=== PATIENT | male | born 1990 | race Caucasian/White ===

== ENCOUNTER 2018-01-26 15:27 | Outpatient (REF) | payer MEDICAID, SELFPAY ==
[2018-01-26 22:49] LABS: Absolute Basophil Count 0.01 k/cumm (0.0-0.2); Absolute Eosinophil Count 0.27 k/cumm (0.0-0.7); Absolute Lymphocyte Count 2.52 k/cumm (1.2-3.4); Absolute Monocyte Count 0.38 k/cumm (0.11-0.7); Absolute Neutrophil Count 1.96 k/cumm (1.2-6.7); Basophils % 0.2; Eosinophils % 5.3; HGB 13.1 g/dL (13.5-17.5); Mean Corpuscular Hemoglobin 31.1 pg (27.0-33.0); Mean Corpuscular Volume 97.4 fL (80-95); Mean Platelet Volume 10.2 fL (8.0-11.0); Monocytes % 7.4; Neutrophils % 38.1; Platelet Count 221 x1000/uL (130-400); RBC 4.21 m/cumm (4.50-6.00); RBC Distribution Width 12.9 % (11.8-14.1); White Blood Cell Count 5.14 k/cumm (4.4-10.8)
[2018-01-26 23:07] LABS: ALT 29 U/L (12-78); Albumin 4.2 g/dL (3.4-5.0); Alkaline Phosphatase 42 U/L (46-116); Anion Gap 7.6 mmol/L (3-11); BUN 24 mg/dL (7-18); Bilirubin, Total 0.2 mg/dL (0.2-1.0); CO2 32.4 mmol/L (21.0-32.0); CREATININE 0.96 mg/dL (0.70-1.30); Calcium 9.6 mg/dL (8.5-10.1); Chloride 101 mmol/L (98-107); Glucose 95 mg/dL (70-100); Potassium 4.8 mmol/L (3.5-5.1); Sodium 141 mmol/L (136-145); Total Protein 7.9 g/dL (6.4-8.2)
[2018-01-26 23:16] LABS: Lipase 148 U/L (73-393)
[2018-01-26 23:34] LABS: AST 17 U/L (15-37)
== END 2018-01-26 15:47 ==
LOC: NCHCN 15:27
PROVIDERS: PCP Family Medicine; Visit Provider Family Medicine
DX: R10.9 Unspecified abdominal pain (principal)
CPT/HCPCS: 80053; 83690; 85025

== ENCOUNTER 2018-09-19 12:43 | Outpatient (REF) | payer MEDICAID, SELFPAY | END 2018-09-19 13:03 | LOC: NCHCN 12:43 | PROVIDERS: PCP Family Medicine; Visit Provider Specialist/Technologist Athletic Trainer | DX: E03.9 Hypothyroidism, unspecified (principal) | CPT/HCPCS: 84443 ==

== ENCOUNTER 2018-10-17 02:17 | Outpatient (CLI) | payer MEDICAID, SELFPAY | END 2018-10-17 02:37 | PROVIDERS: PCP Family Medicine; Visit Provider Family Medicine | DX: R69 Illness, unspecified (principal) ==

== ENCOUNTER 2018-12-21 16:55 | Emergency (ER) | payer MEDICAID, SELFPAY ==
[2018-12-21 16:59] VITALS: BP 126/48; PULSE 64; RESP 18; TEMP 36.7; O2SAT 97
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
[2018-12-21 18:33] VITALS: BP 126/48; PULSE 64; RESP 18; TEMP 36.7; O2SAT 97
== END 2018-12-21 18:37 | disposition home or self-care (01) ==
PROVIDERS: Emergency Provider Physician Assistant; PCP Family Medicine
DX: S92.354A Nondisplaced fracture of fifth metatarsal bone, right foot, initial encounter for closed fracture (principal); V86.59XA Driver of other special all-terrain or other off-road motor vehicle injured in nontraffic accident, initial encounter
CPT/HCPCS: 29515; 99282; 99283; 73630

== ENCOUNTER 2018-12-30 19:26 | Emergency (ER) | payer MEDICAID, SELFPAY ==
[2018-12-30 19:33] VITALS: BP 114/64; PULSE 64; RESP 16; TEMP 36.5; O2SAT 94
--- NOTE | 2018-12-30 20:11 | W.ED.GENAD ---
Discharge Plan Disposition Patient Disposition: HOME Condition: Good Discharge Details Chief Complaint: Orthopedic Clinical Impression: Acute right ankle pain Primary Care Provider: Sandeep Butler ED Provider: Abiel Azar Home Meds and New Rx's Prescriptions: No Action clonidine HCl 0.1 MG tablet 0.1 mg PO .7A, 12P,4P,HS RF: 0 tiagabine 4 MG tablet 8 mg PO .QHS RF: 0 tiagabine 4 MG tablet 4 mg PO BID RF: 0 oxcarbazepine [Trileptal] 300 MG tablet 300 mg PO .HS AND7A RF: 0 magnesium oxide 400 MG tablet 400 mg PO BID RF: 0 trazodone 100 MG tablet 200 mg PO .QHS RF: 0 trazodone 100 MG tablet 100 mg PO .7A AND 1600 RF: 0 trazodone 100 MG tablet 50 mg PO PRNRF: 0 divalproex [Depakote ER] 500 MG tablet extended release 24 hr 1,000 mg PO .QHS RF: 0 docusate sodium [Colace] 100 MG capsule 100 mg PO BID RF: 0 lithium carbonate 300 MG tablet 600 mg PO .QHS RF: 0 aripiprazole [Abilify] 15 MG tablet 15 mg PO DAILY RF: 0 cholecalciferol (vitamin D3) [Vitamin D3] 2,000 UNIT capsule 2,000 unit PO DAILY RF: 0 Fish Oil 300 MG capsule 300 mg PO BID RF: 0 vitamin G29-aqyey acid 1 EACH tablet 1 tab PO DAILY RF: 0 levothyroxine 25 MCG tablet 75 mcg PO DAILY RF: 0 calcium carbonate [Tums] 200 MG tablet,chewable 200 mg PO PRNRF: 0 ibuprofen 200 MG tablet 200 mg PO PRNRF: 0 melatonin 1 MG tablet 1 mg PO DAILY RF: 0 risperidone [Risperdal] 4 mg Tablet 4 mg RF: 0 tiagabine [Gabitril] 4 mg Tablet 4 mg PO BID RF: 0 oxcarbazepine 300 mg Tablet 300 mg PO BID RF: 0 risperidone [Risperdal] 2 mg Tablet 2 mg PO QHS RF: 0 lorazepam 2 mg Tablet 2 mg PO DAILY PRNRF: 0 pantoprazole 40 mg Tablet,Delayed Release (Dr/Ec) 40 mg PO DAILY RF: 0 prazosin 2 mg Capsule 2 mg PO QHS RF: 0 Discharge Instructions Instructions: Swollen Joint (ED) Additional Instructions: At this time through our discussion we we will hold off on the x-ray. I suspect a sprain of your ankle. Please use the walking boot at all times. If you notice any worsening of your symptoms, or any new symptoms such as vomiting, diarrhea, fever, chills, shortness of breath, chest pain, numbness, weakness, or fainting , please return immediately to the emergency department for reevaluation. Please follow up with your primary care provider as soon as possible for reassessment and reevaluation. As always, it was a pleasure participating in your medical care today. Referrals: Sandeep Butler [Primary Care Provider] - Discharge Data Discharge Date/Time-TO BE ENTERED AT DEPARTURE: 12/30/18 20:35 Medical Decision Making This is a 28 year old male with hx of asthma, ADHD, PTSD, developmental delay, microcephaly, seizure disorder, kleinfelter's syndrome, who presents today for evaluation of right ankle pain. Patient was recently seen here about a week ago where he was noticed to have a mild right-sided fifth proximal metatarsal fracture. He presents today for evaluation of pain in his right ankle. Family states that he has not been wearing the postop shoe that was prescribed to him on his last visit. Unfortunately today when he was walking around and ambulating he suffered a mild twist of his right ankle. He has been walking on it since then without significant difficulty but has had mild pain and tenderness. Family states that they have noticed no significant limp, or signs of significant distress. Physical exam demonstrates minimal tenderness over the lateral malleolus, no severe swelling, no evidence of significant tibial or fibular tenderness. The patient ambulates without significant difficulty. Signs and symptoms appear consistent with sprain of the ankle. I did discuss with family I request for imaging of the lower extremity. Family states that they are not overly concerned with the patient's symptomatology, and agree that it is likely just a sprain. Especially as he has been walking on it all day without significant difficulty. They would like to hold off on imaging for the time being. I discussed the risks and benefits of this including lifelong disability and patient family understand. We will pay place the patient in an Aircast. Patient tolerated this very well. Discussed red flags which return, as well as the importance of prompt return for imaging if his symptoms do not improve with time. Discussed the importance of close follow-up. I have extensively reviewed the treatment plan and discharge instructions with the patient and their family. I have addressed all patient concerns at this time. The patient and family was made aware of what symptoms to monitor for that would warrant a return to the emergency department. Discussed the plan with the patient and family, they demonstrate verbal understanding and agreement with our assessment and plan at this time. HPI General Date/Time Provider Initiated Documentation: 12/30/18 20:01. HPI Narrative: This is a 28 year old male with hx of asthma, ADHD, PTSD, developmental delay, microcephaly, seizure disorder, kleinfelter's syndrome, who presents today for evaluation of right ankle pain. Patient was recently seen here about a week ago where he was noticed to have a mild right-sided fifth proximal metatarsal fracture. He presents today for evaluation of pain in his right ankle. Family states that he has not been wearing the postop shoe that was prescribed to him on his last visit. Unfortunately today when he was walking around and ambulating he suffered a mild twist of his right ankle. He has been walking on it since then without significant difficulty but has had mild pain and tenderness. Family states that they have noticed no significant limp, or signs of significant distress. Aside for the mild pain in his right ankle the patient has no other complaints of pain at this time. He denies falling and hitting his head, or any other trauma. No other modifying factors. Related Data Home Medications Medication Instructions Recorded Confirmed Fish Oil 300 mg PO BID 03/17/14 12/21/18 aripiprazole [Abilify] 15 mg PO DAILY 03/17/14 03/17/14 calcium carbonate [Tums] 200 mg PO PRN 03/17/14 03/17/14 cholecalciferol (vitamin D3) 2,000 unit PO DAILY 03/17/14 12/21/18 [Vitamin D3] clonidine HCl 0.1 mg PO .7A, 12P,4P,HS 03/17/14 12/21/18 divalproex [Depakote ER] 1,000 mg PO .QHS 03/17/14 12/21/18 docusate sodium [Colace] 100 mg PO BID 03/17/14 12/21/18 ibuprofen 200 mg PO PRN 03/17/14 03/17/14 levothyroxine 75 mcg PO DAILY 03/17/14 12/21/18 lithium carbonate 600 mg PO .QHS 03/17/14 03/17/14 magnesium oxide 400 mg PO BID 03/17/14 12/21/18 melatonin 1 mg PO DAILY 03/17/14 12/21/18 oxcarbazepine [Trileptal] 300 mg PO .HS AND7A 03/17/14 03/17/14 tiagabine 4 mg PO BID 03/17/14 03/17/14 tiagabine 8 mg PO .QHS 03/17/14 03/17/14 trazodone 50 mg PO PRN 03/17/14 03/17/14 trazodone 100 mg PO .7A AND 1600 03/17/14 03/17/14 trazodone 200 mg PO .QHS 03/17/14 12/21/18 vitamin N80-lugrz acid 1 tab PO DAILY 03/17/14 03/17/14 lorazepam 2 mg PO DAILY PRN 12/21/18 12/21/18 oxcarbazepine 300 mg PO BID 12/21/18 12/21/18 pantoprazole 40 mg PO DAILY 12/21/18 12/21/18 prazosin 2 mg PO QHS 12/21/18 12/21/18 risperidone [Risperdal] 2 mg PO QHS 12/21/18 12/21/18 risperidone [Risperdal] 4 mg 12/21/18 tiagabine [Gabitril] 4 mg PO BID 12/21/18 12/21/18 Allergies Allergy/AdvReac Type Severity Reaction Status Date / Time diphenhydramine HCl Allergy Unknown Unverified 12/21/18 17:22 [From Benadryl] phenytoin sodium Allergy Unknown Unverified 12/21/18 17:22 [From Dilantin] phenytoin sodium extended Allergy Unknown Unverified 12/21/18 17:22 [From Dilantin] latex Allergy Unverified 12/21/18 17:22 General Stated Complaint: Orthopedic YNES: 4 Review of Systems Review of Systems ROS Unobtainable: All systems reviewed & are unremarkable except as noted in HPI and below PFSH Social History Smoking/Tobacco Use Status: Never Alcohol Intake: never Drug use: Never Do you feel safe at home: Yes Do you feel safe in your relationship?: Yes Exam Narrative Exam Narrative: 1.Const: Well-nourished, Well-developed, appearing stated age 2.Eyes: PERRL, no conjunctival injection, and symmetrical lids. 3.ENT: Atraumatic external nose and ears. Moist MM. Neck: Symmetric, trachea midline, No thyromegaly. 4.CVS: +S1/S2, No murmurs or gallops. Peripheral pulses 2+ and equal in all extremities. Brisk capillary refill in all extremities. 5.RESP: Unlabored respiratory effort. Clear to auscultation bilaterally. No wheezes rales or rhonchi 6.GI: Soft, Nontender/Nondistended, No hepatosplenomegaly. No guarding or rebound. 7.MSK: Patient demonstrates normal movement of all extremities, mild bruising and tenderness over the proximal component of the fifth metatarsal on the right foot. Mild tenderness over the lateral malleolus, however no tenderness over the inferior posterior component. No significant swelling. No significant tenderness over the tip/fib over the shaft. Normal range of motion, normal strength. 8.Skin: Warm, Dry. No rashes or lesions. 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 Sensation grossly intact, no focal neurologic deficits. 10.Psych: (AAO) x3. Appropriate mood and affect Course Vital Signs Vital signs: Vital Signs Temperature 36.5 C 12/30/18 19:33 Pulse 64 12/30/18 19:33 Respiratory Rate 16 12/30/18 19:33 Blood Pressure 114/64 12/30/18 19:33 Pulse Oximetry 94 L 12/30/18 19:33 Temperature 36.5 C 12/30/18 19:33 Temperature Source Skin 12/30/18 19:33 Pulse 64 12/30/18 19:33 Respiratory Rate 16 12/30/18 19:33 Blood Pressure 114/64 12/30/18 19:33 Blood Pressure Position Sitting 12/30/18 19:33 Pulse Oximetry 94 L 12/30/18 19:33 Oxygen Delivery Method Room Air 12/30/18 19:33 Oxygen Flow Rate 0 12/30/18 19:33 Pain Level 10 12/30/18 19:33
== END 2018-12-30 20:35 | disposition home or self-care (01) ==
PROVIDERS: Emergency Provider Student in an Organized Health Care Education/Training Program; PCP Family Medicine
DX: M25.571 Pain in right ankle and joints of right foot (principal)
CPT/HCPCS: 29515; 99283; 99282; L4361

== ENCOUNTER 2019-01-18 18:09 | Emergency (ER) | payer MEDICAID, SELFPAY ==
[2019-01-18 18:36] VITALS: PULSE 87; RESP 18; TEMP 36.6; O2SAT 92
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
[2019-01-18 21:54] VITALS: BP 128/64; PULSE 88; RESP 18; TEMP 37.4; O2SAT 99
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
== END 2019-01-18 21:54 | disposition home or self-care (01) ==
PROVIDERS: Emergency Provider Physician Assistant; PCP Family Medicine
DX: S80.02XA Contusion of left knee, initial encounter (principal); W50.0XXA Accidental hit or strike by another person, initial encounter
CPT/HCPCS: 99283; 73564; 99282

== ENCOUNTER 2019-02-26 19:48 | Emergency (ER) | payer MEDICAID, SELFPAY ==
[2019-02-26 19:56] VITALS: BP 144/86; PULSE 90; RESP 18; TEMP 36.4; O2SAT 98
--- NOTE | 2019-02-26 20:03 | ED.GENADUL_ITS ---
Discharge Plan Disposition Patient Disposition: HOME Condition: Good Discharge Details Chief Complaint: PsychEval Clinical Impression: Noncompliance with medications Primary Care Provider: Sandeep Butler ED Provider: Abiel Azar Home Meds and New Rx's Prescriptions: No Action clonidine HCl 0.1 MG tablet 0.1 mg PO .7A, 12P,4P,HS RF: 0 tiagabine 4 MG tablet 8 mg PO .QHS RF: 0 tiagabine 4 MG tablet 4 mg PO BID RF: 0 oxcarbazepine [Trileptal] 300 MG tablet 300 mg PO .HS AND7A RF: 0 magnesium oxide 400 MG tablet 400 mg PO BID RF: 0 trazodone 100 MG tablet 200 mg PO .QHS RF: 0 trazodone 100 MG tablet 100 mg PO .7A AND 1600 RF: 0 trazodone 100 MG tablet 50 mg PO PRNRF: 0 divalproex [Depakote ER] 500 MG tablet extended release 24 hr 1,000 mg PO .QHS RF: 0 docusate sodium [Colace] 100 MG capsule 100 mg PO BID RF: 0 lithium carbonate 300 MG tablet 600 mg PO .QHS RF: 0 aripiprazole [Abilify] 15 MG tablet 15 mg PO DAILY RF: 0 cholecalciferol (vitamin D3) [Vitamin D3] 2,000 UNIT capsule 2,000 unit PO DAILY RF: 0 Fish Oil 300 MG capsule 300 mg PO BID RF: 0 vitamin T81-pbiss acid 1 EACH tablet 1 tab PO DAILY RF: 0 levothyroxine 25 MCG tablet 75 mcg PO DAILY RF: 0 calcium carbonate [Tums] 200 MG tablet,chewable 200 mg PO PRNRF: 0 ibuprofen 200 MG tablet 200 mg PO PRNRF: 0 melatonin 1 MG tablet 1 mg PO DAILY RF: 0 risperidone [Risperdal] 4 mg Tablet 4 mg RF: 0 tiagabine [Gabitril] 4 mg Tablet 4 mg PO BID RF: 0 oxcarbazepine 300 mg Tablet 300 mg PO BID RF: 0 risperidone [Risperdal] 2 mg Tablet 2 mg PO QHS RF: 0 lorazepam 2 mg Tablet 2 mg PO DAILY PRNRF: 0 pantoprazole 40 mg Tablet,Delayed Release (Dr/Ec) 40 mg PO DAILY RF: 0 prazosin 2 mg Capsule 2 mg PO QHS RF: 0 Discharge Instructions Additional Instructions: It is very important to take your medications at home, as this will help prevent your seizures and other medical problems. It is important to get along with those that you stay with. Confrontation does not improve your medical care or your time at your home. If you notice any worsening of your symptoms, or any new symptoms such as vomiting, diarrhea, fever, chills, shortness of breath, chest pain, numbness, weakness, or fainting , please return immediately to the emergency department for reevaluation. Please follow up with your primary care provider as soon as possible for reassessment and reevaluation. As always, it was a pleasure participating in your medical care today. Referrals: Sandeep Butler [Primary Care Provider] - Medical Decision Making This is a 28-year-old male with past medical history of Klinefelter syndrome, seizures, ADHD, PTSD, and developmental delay who presents today for evaluation of medication noncompliance. The patient at home has been refusing to take any of his nighttime medications. He has been slightly confrontational at his house. Although he has made threatening statements that he would want to beat people up, he is made no actions for this. Additionally he has stated occasionally that he just wants things to end, however this is inconsistent, right now he denies any homicidal or suicidal ideations. Exam demonstrates no signs or symptoms concerning for metabolic abnormality, no clinical evidence of meningitis. Vital signs are notably stable. Signs and symptoms appear consistent with noncompliance secondary to the patient's developmental delay. After discussion with the patient the patient is agreed to take his home nighttime medications which will be administered here in the ED. Mental health has come and assess the patient the safety plan has been contracted for the patient at home. After medication administration the patient will be discharged with his caregivers back to his facility. At this time there is no evidence of behavior that would result in homicidal or suicidal actions. Through the help of mental health, they feel that he is stable, I concur with this. I have extensively reviewed the treatment plan and discharge instructions with the patient and their family. I have addressed all patient concerns at this time. The patient and family was made aware of what symptoms to monitor for that would warrant a return to the emergency department. Discussed the plan with the patient and family, they demonstrate verbal understanding and agreement with our assessment and plan at this time. HPI General Date/Time Provider Initiated Documentation: 02/26/19 19:57 . HPI Narrative: This is a 28-year-old male with a past medical history of seizures, ADHD, PTSD, developmental delay, asthma, Klinefelter syndrome, microcephaly, who presents today for evaluation for mental health screening. Patient's caregiver states that over the last 24 hours patient has been slightly confrontational, he has been refusing to take his nighttime medications, and he has had occasional seizures which is his baseline. He denies any homicidal ideations, but he test state that he does occasionally want to hurt himself however the statements are inconsistent, he states that he does not want to end his life, he is just sometimes frustrated with his current living status. He denies any other complaints. He denies any other modifying factors. Mental health is here, and will evaluate the patient. Related Data Home Medications Medication Instructions Recorded Confirmed Fish Oil 300 mg PO BID 03/17/14 12/21/18 aripiprazole [Abilify] 15 mg PO DAILY 03/17/14 03/17/14 calcium carbonate [Tums] 200 mg PO PRN 03/17/14 03/17/14 cholecalciferol (vitamin D3) 2,000 unit PO DAILY 03/17/14 12/21/18 [Vitamin D3] clonidine HCl 0.1 mg PO .7A, 12P,4P,HS 03/17/14 12/21/18 divalproex [Depakote ER] 1,000 mg PO .QHS 03/17/14 12/21/18 docusate sodium [Colace] 100 mg PO BID 03/17/14 12/21/18 ibuprofen 200 mg PO PRN 03/17/14 03/17/14 levothyroxine 75 mcg PO DAILY 03/17/14 12/21/18 lithium carbonate 600 mg PO .QHS 03/17/14 03/17/14 magnesium oxide 400 mg PO BID 03/17/14 12/21/18 melatonin 1 mg PO DAILY 03/17/14 12/21/18 oxcarbazepine [Trileptal] 300 mg PO .HS AND7A 03/17/14 03/17/14 tiagabine 4 mg PO BID 03/17/14 03/17/14 tiagabine 8 mg PO .QHS 03/17/14 03/17/14 trazodone 50 mg PO PRN 03/17/14 03/17/14 trazodone 100 mg PO .7A AND 1600 03/17/14 03/17/14 trazodone 200 mg PO .QHS 03/17/14 12/21/18 vitamin C82-mvhmd acid 1 tab PO DAILY 03/17/14 03/17/14 lorazepam 2 mg PO DAILY PRN 12/21/18 12/21/18 oxcarbazepine 300 mg PO BID 12/21/18 12/21/18 pantoprazole 40 mg PO DAILY 12/21/18 12/21/18 prazosin 2 mg PO QHS 12/21/18 12/21/18 risperidone [Risperdal] 2 mg PO QHS 12/21/18 12/21/18 risperidone [Risperdal] 4 mg 12/21/18 tiagabine [Gabitril] 4 mg PO BID 12/21/18 12/21/18 Allergies Allergy/AdvReac Type Severity Reaction Status Date / Time diphenhydramine HCl Allergy Unknown Unverified 02/26/19 20:58 [From Benadryl] latex Allergy Unknown Unverified 02/26/19 20:58 phenytoin sodium Allergy Unknown Unverified 02/26/19 20:58 [From Dilantin] phenytoin sodium extended Allergy Unknown Unverified 02/26/19 20:58 [From Dilantin] General Stated Complaint: PsychEval YNES: 3 Review of Systems All systems reviewed & are unremarkable except as noted in HPI and below PFSH Social History Smoking/Tobacco Use Status: Current-Occasional Tobacco Type: cigarettes and smokeless tobacco Alcohol Intake: never Drug use: Never Do you feel safe at home: Yes Exam Narrative Exam Narrative: 1.Const: Well-nourished, Well-developed, appearing stated age 2.Eyes: PERRL, no conjunctival injection, and symmetrical lids. 3.ENT: Atraumatic external nose and ears. Moist MM. Neck: Symmetric, trachea midline, No thyromegaly. Patient demonstrates good movement of cervical neck. There is no nuchal rigidity, no nuchal tenderness. Patient is able to flex the neck without any difficulty or significant pain. Negative Kernig's and Brudzinski sign. 4.CVS: +S1/S2, No murmurs or gallops. Peripheral pulses 2+ and equal in all extremities. Brisk capillary refill in all extremities. 5.RESP: Unlabored respiratory effort. Clear to auscultation bilaterally. No wheezes rales or rhonchi 6.GI: Soft, Nontender/Nondistended, No hepatosplenomegaly. No guarding or rebo und. 7.MSK: Normocephalic/Atraumatic, Extremities w/o deformity or ttp No cyanosis or clubbing, Normal movement of all extremities 8.Skin: Warm, Dry. No rashes or lesions. 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 Sensation grossly intact, no focal neurologic deficits. 10.Psych: (AAO) x3. Appropriate mood and affect Course Vital Signs Vital signs: Vital Signs Temperature 36.4 C L 02/26/19 19:56 Pulse 90 02/26/19 19:56 Respiratory Rate 18 02/26/19 19:56 Blood Pressure 144/86 H 02/26/19 19:56 Pulse Oximetry 98 02/26/19 19:56 Temperature 36.4 C L 02/26/19 19:56 Temperature Source Temporal Artery Scan 02/26/19 19:56 Pulse 90 02/26/19 19:56 Respiratory Rate 18 02/26/19 19:56 Blood Pressure 144/86 H 02/26/19 19:56 Blood Pressure Position Sitting 02/26/19 19:56 Pulse Oximetry 98 02/26/19 19:56 Oxygen Delivery Method Room Air 02/26/19 19:56 Oxygen Flow Rate 0 02/26/19 19:56 End Tidal Co2 0 02/26/19 19:56 Pain Level 0 02/26/19 19:56
[2019-02-26] MEDS: cloNIDine 0.1 MG TAB PO (20:20)
[2019-02-26] MEDS: Prazosin 1 MG CAP 2 MG PO (20:50)
[2019-02-26] MEDS: OXcarbazepine 150 MG TAB 900 MG PO (20:50)
[2019-02-26 20:52] VITALS: TEMP 34.4
[2019-02-26] MEDS: LORazepam 2 MG/ML VIAL IM (20:52)
[2019-02-26] MEDS: Haloperidol 5 MG/ML VIAL 4 MG IM (20:52)
[2019-02-26] MEDS: Melatonin 3 MG TAB PO (20:53)
[2019-02-26 21:15] VITALS: BP 132/76; PULSE 75; RESP 18; TEMP 37.2; O2SAT 99
== END 2019-02-26 21:05 | disposition home or self-care (01) ==
PROVIDERS: Emergency Provider Student in an Organized Health Care Education/Training Program; PCP Family Medicine
DX: R56.9 Unspecified convulsions (principal); Q98.4 Klinefelter syndrome, unspecified; Z91.14 Patient's other noncompliance with medication regimen; Z91.128 Patient's intentional underdosing of medication regimen for other reason
CPT/HCPCS: 96372; 99285; 99284; J1630; J2060

== ENCOUNTER 2019-03-10 16:22 | Emergency (ER) | payer MEDICAID, SELFPAY ==
[2019-03-10 16:30] VITALS: BP 125/71; PULSE 72; RESP 16; TEMP 36.6; O2SAT 95
--- NOTE | 2019-03-10 17:07 | ED.GENADUL_ITS ---
Discharge Plan Disposition Patient Disposition: HOME Discharge Details Chief Complaint: Orthopedic Clinical Impression: Abdominal pain, Constipation Primary Care Provider: Sandeep Butler ED Provider: Albin Wright Home Meds and New Rx's Prescriptions: New polyethylene glycol 3350 [Miralax] 17 gram powder in packet 17 gm PO DAILY PRN (Reason: constipation) Qty: 10 RF: 0 No Action clonidine HCl 0.1 MG tablet 0.1 mg PO DIRECTED RF: 0 tiagabine 4 MG tablet 8 mg PO .QHS RF: 0 tiagabine 4 MG tablet 4 mg PO BID RF: 0 oxcarbazepine [Trileptal] 300 MG tablet 300 mg PO .HS AND7A RF: 0 magnesium oxide 400 MG tablet 400 mg PO BID RF: 0 trazodone 100 MG tablet 200 mg PO .QHS RF: 0 trazodone 100 MG tablet 100 mg PO .7A AND 1600 RF: 0 trazodone 100 MG tablet 50 mg PO PRNRF: 0 divalproex [Depakote ER] 500 MG tablet extended release 24 hr 1,000 mg PO .QHS RF: 0 docusate sodium [Colace] 100 MG capsule 100 mg PO BID RF: 0 lithium carbonate 300 MG tablet 600 mg PO .QHS RF: 0 aripiprazole [Abilify] 15 MG tablet 15 mg PO DAILY RF: 0 cholecalciferol (vitamin D3) [Vitamin D3] 2,000 UNIT capsule 2,000 unit PO DAILY RF: 0 Fish Oil 300 MG capsule 300 mg PO BID RF: 0 vitamin Q50-oqysj acid 1 EACH tablet 1 tab PO DAILY RF: 0 levothyroxine 25 MCG tablet 75 mcg PO DAILY RF: 0 calcium carbonate [Tums] 200 MG tablet,chewable 200 mg PO PRN PRNRF: 0 ibuprofen 200 MG tablet 200 mg PO PRNRF: 0 melatonin 1 MG tablet 1 mg PO DAILY RF: 0 risperidone [Risperdal] 4 mg Tablet 4 mg PO DAILY RF: 0 tiagabine [Gabitril] 4 mg Tablet 1 mg PO DAILY RF: 0 oxcarbazepine 300 mg Tablet 300 mg PO BID RF: 0 risperidone [Risperdal] 2 mg Tablet 2 mg PO QHS RF: 0 lorazepam 2 mg Tablet 2 mg PO DAILY PRNRF: 0 pantoprazole 40 mg Tablet,Delayed Release (Dr/Ec) 40 mg PO DAILY RF: 0 prazosin 2 mg Capsule 2 mg PO QHS RF: 0 tiagabine [Gabitril] 4 mg Tablet 8 mg PO HS RF: 0 tiagabine [Gabitril] 4 mg Tablet 4 mg PO DAILY RF: 0 Discharge Instructions Instructions: Constipation (ED) Additional Instructions: Your CAT scan was negative for appendicitis here in the emergency department. Your labs did demonstrate evidence for dehydration. This is most likely contributing to some of your symptoms of constipation. You should be drinking 8 ounces of water every 1 to 2 hours throughout the day. I did provide a prescription for MiraLAX with which she should take every day for the next 5 to 7 days until bowel movements normalize. If your symptoms worsen or you develop fever, vomiting or severe abdominal pain you should return to the emergency department immediately. Otherwise, if your symptoms persist follow-up with your primary care provider. Referrals: Sandeep Butler [Primary Care Provider] - 2 weeks Medical Decision Making 17:28 This is a nontoxic-appearing 28-year-old male presenting to the emergency department with lower abdominal pain which he describes as hip pain. Vital signs stable. He is without fever. Physical exam demonstrates right lower greater than left lower quadrant abdominal tenderness. No rebound or guarding. He has a positive psoas sign. Negative heel strike. Genitourinary exam negative. No inguinal hernia noted bilaterally. Will obtain IV and CT abdomen and pelvis for appendicitis rule out. 18:54 CT read as negative for acute appendicitis. No stranding or inflammation in the right lower quadrant as they are unable to definitively identify appendix. He does have an a significant stool burden which would go along with his constipation story. No other acute findings noted. Labs imitate slight de hydration with an elevated BUN to creatinine ratio greater than 20:1. Remainder of labs unremarkable. Discussed adequate fluid hydration and constipation management. Return precautions provided. Patient stable for discharge at this time. HPI General Date/Time Provider Initiated Documentation: 03/10/19 16:46 . HPI Narrative: Patient is a 28-year-old male with a past medical history for TBI who presents to the emergency department accompanied by caregivers who presents to the [facility] department with lower abdominal pain which she describes as hip pain. Patient states he woke up this morning with the symptoms. When asked where his pain is he locates it in the right lower and left lower quadrants of his abdomen. He states ambulating exacerbates his symptoms. He denies any trauma. He has had no nausea. He has had constipation with which he deals with on a regular basis. Caregivers treated his constipation with Metamucil without any effect. He denies any fevers. He does state that the car ride over exacerbated his symptoms. He has no surgical history on his abdomen. Related Data Home Medications Medication Instructions Recorded Confirmed Fish Oil 300 mg PO BID 03/17/14 03/10/19 aripiprazole [Abilify] 15 mg PO DAILY 03/17/14 03/17/14 calcium carbonate [Tums] 200 mg PO PRN PRN 03/17/14 03/10/19 cholecalciferol (vitamin D3) 2,000 unit PO DAILY 03/17/14 03/10/19 [Vitamin D3] clonidine HCl 0.1 mg PO DIRECTED 03/17/14 03/10/19 divalproex [Depakote ER] 1,000 mg PO .QHS 03/17/14 03/10/19 docusate sodium [Colace] 100 mg PO BID 03/17/14 03/10/19 ibuprofen 200 mg PO PRN 03/17/14 03/17/14 levothyroxine 75 mcg PO DAILY 03/17/14 03/10/19 lithium carbonate 600 mg PO .QHS 03/17/14 03/17/14 magnesium oxide 400 mg PO BID 03/17/14 03/10/19 melatonin 1 mg PO DAILY 03/17/14 12/21/18 oxcarbazepine [Trileptal] 300 mg PO .HS AND7A 03/17/14 03/17/14 tiagabine 4 mg PO BID 03/17/14 03/17/14 tiagabine 8 mg PO .QHS 03/17/14 03/17/14 trazodone 50 mg PO PRN 03/17/14 03/17/14 trazodone 100 mg PO .7A AND 1600 03/17/14 03/10/19 trazodone 200 mg PO .QHS 03/17/14 12/21/18 vitamin X82-avtnd acid 1 tab PO DAILY 03/17/14 03/10/19 lorazepam 2 mg PO DAILY PRN 12/21/18 12/21/18 oxcarbazepine 300 mg PO BID 12/21/18 03/10/19 pantoprazole 40 mg PO DAILY 12/21/18 03/10/19 prazosin 2 mg PO QHS 12/21/18 03/10/19 risperidone [Risperdal] 2 mg PO QHS 12/21/18 03/10/19 risperidone [Risperdal] 4 mg PO DAILY 12/21/18 03/10/19 tiagabine [Gabitril] 1 mg PO DAILY 12/21/18 12/21/18 polyethylene glycol 3350 [Miralax] 17 gm PO DAILY PRN #10 each 03/10/19 tiagabine [Gabitril] 4 mg PO DAILY 03/10/19 03/10/19 tiagabine [Gabitril] 8 mg PO HS 03/10/19 03/10/19 Previous Rx's Medication Instructions Recorded polyethylene glycol 3350 [Miralax] 17 gm PO DAILY PRN #10 each 03/10/19 Allergies Allergy/AdvReac Type Severity Reaction Status Date / Time diphenhydramine HCl Allergy Unknown Unverified 03/10/19 16:33 [From Benadryl] latex Allergy Unknown Unverified 03/10/19 16:33 phenytoin sodium Allergy Unknown Unverified 03/10/19 16:33 [From Dilantin] phenytoin sodium extended Allergy Unknown Unverified 03/10/19 16:33 [From Dilantin] General Stated Complaint: Orthopedic YNES: 4 Review of Systems Constitutional Constitutional: Denies anorexia, Denies chills, Denies fever(s), Denies headache(s) and Denies weakness ENT Ears, Nose, Mouth, and Throat: Denies headache(s) and Denies neck pain Cardiovascular Cardiovascular: Denies chest pain, Denies edema and Denies dyspnea Respiratory Respiratory: Denies dyspnea Gastrointestinal Gastrointestinal: Reports abdominal pain, Denies bloating, Denies change in stool character, Reports constipation, Denies dyspepsia, Denies diarrhea, Denies nausea and Denies vomiting Genitourinary Genitourinary: Denies dysuria, Denies flank pain, Denies penile discharge, Denies scrotal swelling, Denies testicular pain, Denies urinary frequency and Denies urinary hesitancy Musculoskeletal Musculoskeletal: Reports abnormal gait, Denies back pain, Denies myalgias, Denies deformity, Denies arthralgias, Denies joint swelling, Denies muscle cramps, Denies muscle weakness, Denies neck pain, Denies numbness and Denies stiffness Integumentary/Breasts Skin/Breast: Denies rash Neurologic Neurologic: Reports abnormal gait, Denies headache(s), Denies numbness and Denies weakness [facility]LY [facility] Social History Smoking/Tobacco Use Status: Current-Occasional Tobacco Type: cigarettes and smokeless tobacco Alcohol Intake: never Drug use: Never Do you feel safe at home: Yes Do you feel safe in your relationship?: Yes Exam Const General: healthy appearing, comfortable and no acute distress Nutritional Appearance: well nourished Orientation: alert, awake and oriented x3 HENMT Head: normal to inspection Ears: hearing grossly normal bilaterally Neck Neck: normal visual inspection and full ROM Chest Chest: normal inspection of the chest Resp Effort & Inspection: normal respiratory effort and able to speak in complete sentences Auscultation: clear to auscultation bilaterally Cardio Rate: regular rate Rhythm: regular rhythm Pulses: normal peripheral pulses GI Inspection: normal to inspection Palpation: soft, no guarding and tender in the RLQ, in the LUQ and psoas sign positive; with no rebound tenderness General: No CVA tenderness Male General Exam: Yes normal external exam, No hernia and No inguinal lymphadenopathy Penis: normal penis Testes: normal Back/Spine/Pelvis Back: no CVA tenderness Thoracic/Lumbar Spine: thoracic and lumbar spine normal to inspection Pelvis: no pain with anterior-posterior compression Skin General skin exam: no rashes or lesions noted Extrem General: normal to inspection and full ROM Right lower extremity: normal to inspection, full ROM and normal capillary refill Left lower extremity: normal to inspection, full ROM and normal capillary refill Course Vital Signs Vital signs: Vital Signs Temperature 36.6 C 03/10/19 16:30 Pulse 72 03/10/19 16:30 Respiratory Rate 16 03/10/19 16:30 Blood Pressure 125/71 03/10/19 16:30 Pulse Oximetry 95 03/10/19 16:30 Temperature 36.6 C 03/10/19 16:30 Temperature Source Temporal Artery Scan 03/10/19 16:30 Pulse 72 03/10/19 16:30 Respiratory Rate 16 03/10/19 16:30 Respiratory Effort Non-Labored 03/10/19 16:30 Blood Pressure 125/71 03/10/19 16:30 Blood Pressure Position Sitting 03/10/19 16:30 Pulse Oximetry 95 03/10/19 16:30 Oxygen Delivery Method Room Air 03/10/19 16:30 Oxygen Flow Rate 0 03/10/19 16:30
[2019-03-10] MEDS: Omnipaque 350 MG/ML 100 ML BTL IJ (17:08)
[2019-03-10 17:27] LABS: Lactate 0.8 mmol/L (0.6-1.4)
[2019-03-10 17:28] LABS: Bilirubin Small (Negative); Blood Negative (Negative); Clarity Clear (Clear); Glucose Negative (Negative); Ketones 15 mg/dL (Negative); Leukocyte Esterase Negative (Negative); Nitrite Negative (Negative); pH 8.5 (5-8)
[2019-03-10 17:59] LABS: Abs Immature Grans 0.01 k/cumm (0.0-0.09); Absolute Basophil Count 0.02 k/cumm (0.0-0.2); Absolute Eosinophil Count 0.32 k/cumm (0.0-0.7); Absolute Lymphocyte Count 2.83 k/cumm (1.2-3.4); Absolute Monocyte Count 0.31 k/cumm (0.11-0.7); Absolute Neutrophil Count 2.21 k/cumm (1.2-6.7); Basophils % 0.4; Eosinophils % 5.6; HCT 38.2 % (40.0-50.0); HGB 12.9 g/dL (13.5-17.5); Immature Grans % 0.2; Lymphocytes % 49.6; Mean Corp. HGB Concentration 33.8 g/dL (32.0-36.0); Mean Corpuscular Hemoglobin 32.4 pg (27.0-33.0); Mean Platelet Volume 9.8 fL (8.0-11.0); Monocytes % 5.4; Neutrophils % 38.8; Platelet Count 232 x1000/uL (130-400); RBC 3.98 m/cumm (4.50-6.00)
--- NOTE | 2019-03-10 18:04 | DI.CT_ITS ---
EXAM: CT ABDOMEN PELVIS W CLINICAL HISTORY: RLQ pain, psoas sign pos TECHNIQUE: Post IV and without oral contrast. COMPARISON: No exams were available for comparison FINDINGS: There is high-density material in the distal colon which could represent retained barium from a prev ious procedure or other ingested high-density material. There is a large quantity of stool throughou t the colon. There is no abnormal colonic distention or wall thickening. The appendix is not identi fied. There is no small bowel dilatation, free air or free fluid. The bladder is nearly empty. He art size is normal. The lung bases are clear. The liver, spleen, pancreas, kidneys and adrenals tanisha ear normal. Fluid is seen in the stomach. The gallbladder is contracted. IMPRESSION: Large quantity of stool. No acute abnormality.
[2019-03-10 18:27] LABS: Albumin 4.4 g/dL (3.4-5.0); Alkaline Phosphatase 50 U/L (46-116); Anion Gap 8.2 mmol/L (3-11); BUN 22 mg/dL (7-18); Bilirubin, Total 0.2 mg/dL (0.2-1.0); CO2 28.8 mmol/L (21.0-32.0); CREATININE 0.81 mg/dL (0.70-1.30); Calcium 8.6 mg/dL (8.5-10.1); Chloride 103 mmol/L (98-107); Glucose 112 mg/dL (74-106); Potassium 3.6 mmol/L (3.5-5.1); Sodium 140 mmol/L (136-145)
[2019-03-10 18:40] LABS: AST 14 U/L (15-37)
--- NOTE | 2019-03-10 18:41 | DI.VRAD_ITS ---
PROCEDURE INFORMATION: Exam: CT Abdomen And Pelvis With Contrast Exam date and time: 03/10/2019 6:06 PM Age: 28 years old Clinical history: Abdominal pain; Localized; Right lower quadrant (rlq); Patient HX: Rlq pain, psoas sign pos TECHNIQUE: Imaging protocol: Computed tomography of the abdomen and pelvis with intravenous contrast. COMPARISON: No relevant prior studies available. FINDINGS: Liver: Normal. No mass. Gallbladder and bile ducts: Normal. No calcified stones. No ductal dilation. Pancreas: Normal. No ductal dilation. Spleen: Normal. No splenomegaly. Adrenals: Normal. No mass. Kidneys and ureters: Normal. No hydronephrosis. Stomach and bowel: Constipation. Appendix: Unable to identify the appendix. Intraperitoneal space: Unremarkable. No free air. No significant fluid collection. Vasculature: Unremarkable. No abdominal aortic aneurysm. Lymph nodes: Unremarkable. No enlarged lymph nodes. Bladder: Collapsed. Reproductive: Unremarkable as visualized. Bones/joints: Moderate degenerative disc disease at L5-S1. There is associated spinal canal stenosis. Correlate with MRI. As Soft tissues: Unremarkable. IMPRESSION: Constipation. Unable to identify the appendix. No inflammation in the right lower quadrant. Moderate degenerative disc disease at L5-S1. There is associated correlate with MRI. Dictated and Authenticated by: Kathleen Ellington MD. Ordering:GABI Talamantes MD
[2019-03-10 19:04] VITALS: BP 131/81; PULSE 72; RESP 16; O2SAT 95
[2019-03-10 19:58] LABS: ALT 24 U/L (16-63)
== END 2019-03-10 19:05 | disposition home or self-care (01) ==
PROVIDERS: Emergency Provider Physician Assistant; PCP Family Medicine
DX: R10.31 Right lower quadrant pain (principal); K59.00 Constipation, unspecified; E86.0 Dehydration
CPT/HCPCS: 36415; 80053; 99285; 74177; 81003; 83605; 85025; 99284; J3490

== ENCOUNTER 2019-04-04 15:59 | Emergency (ER) | payer MEDICAID, SELFPAY ==
[2019-04-04 16:01] VITALS: BP 108/69; PULSE 54; RESP 20; TEMP 37; O2SAT 97
--- NOTE | 2019-04-04 16:13 | W.ED.GENAD ---
Discharge Plan Disposition Patient Disposition: HOME Condition: Good Discharge Details Chief Complaint: EarProblem Clinical Impression: Irritation of external ear canal Primary Care Provider: Sandeep Butler ED Provider: Alia Galindo [place] Meds and New Rx's Prescriptions: Continued clonidine HCl 0.1 MG tablet 0.1 mg PO DIRECTED RF: 0 oxcarbazepine [Trileptal] 300 MG tablet 300 mg PO BID RF: 0 trazodone 100 MG tablet 200 mg PO .QHS RF: 0 trazodone 100 MG tablet 100 mg PO TID RF: 0 divalproex [Depakote ER] 500 MG tablet extended release 24 hr 1,000 mg PO .QHS RF: 0 docusate sodium [Colace] 100 MG capsule 100 mg PO BID RF: 0 lithium carbonate 300 MG tablet 600 mg PO .QHS RF: 0 aripiprazole [Abilify] 15 MG tablet 15 mg PO DAILY RF: 0 cholecalciferol (vitamin D3) [Vitamin D3] 2,000 UNIT capsule 2,000 unit PO DAILY RF: 0 Fish Oil 300 MG capsule 1,200 mg PO BID RF: 0 levothyroxine 25 MCG tablet 75 mcg PO DAILY RF: 0 calcium carbonate [Tums] 200 MG tablet,chewable 200 mg PO PRN PRNRF: 0 ibuprofen 200 MG tablet 200 mg PO PRNRF: 0 melatonin 1 MG tablet 3 mg PO DAILY RF: 0 risperidone [Risperdal] 4 mg Tablet 4 mg PO DAILY RF: 0 tiagabine [Gabitril] 4 mg Tablet 1 mg PO QNOON RF: 0 risperidone [Risperdal] 2 mg Tablet 2 mg PO QHS RF: 0 lorazepam 2 mg Tablet 2 mg PO DAILY PRNRF: 0 pantoprazole 40 mg Tablet,Delayed Release (Dr/Ec) 40 mg PO DAILY RF: 0 prazosin 2 mg Capsule 2 mg PO QHS RF: 0 tiagabine [Gabitril] 4 mg Tablet 8 mg PO HS RF: 0 tiagabine [Gabitril] 4 mg Tablet 4 mg PO DAILY RF: 0 calcium carbonate [Calcium 600] 600 mg calcium (1,500 mg) Tablet 600 mg PO BID RF: 0 vitamin B complex Tablet 1 tab PO DAILY RF: 0 magnesium gluconate 27 mg magnesium (500 mg) Tablet 27 mg PO BID RF: 0 Discharge Instructions Additional Instructions: Encourage hydration. You may use Tylenol and/or ibuprofen as needed for discomfort. If you develop discharge, increased pain, fever/chills or other new/worsening symptoms please seek care urgently once again. Otherwise, please follow-up with primary care if symptoms not improved in 1 week. Referrals: Sandeep Butler [Primary Care Provider] - Discharge Data Discharge Date/Time-TO BE ENTERED AT DEPARTURE: 04/04/19 16:35 Medical Decision Making Patient is a 28-year-old male presenting to complain of right ear pain. States that this pain began this morning. Denies any fevers or chills. No congestion, sore throat, cough. No recent travel. Has not had pain like this historically. Patient caregiver reports that he was picking at his air earlier this morning. No discharge is been noted. No change in his hearing. Patient has past medical history significant for asthma, mental delay, microcephaly, seizure disorder, Klinefelter syndrome. On exam, patient appears nontoxic. He is resting comfortably. Scant amount of wax was removed from the ear canal for better evaluation. He has mild erythema along the inferior base of the external auditory canal. This is most consistent with an abrasion. Does not appear cellulitic. No evidence of swelling or area to suggest an abscess. No drainage. Tympanic membrane is without acute abnormality. I advised that this is likely from the patient picking at his ears causing irritation to the skin itself. We did discuss signs and symptoms of infection when to seek care urgently once again. Advise follow-up with primary care next week for reevaluation if not improving. Advised that he try to stop picking at his ears. All other questions or concerns were addressed in agreement this plan. HPI General Mode of arrival: ambulatory. Date/Time Provider Initiated Documentation: 04/04/19 16:13. Limitations to Documentation: no limitations. Information obtained by: patient, family (accompanied by field care manager) and RN notes reviewed. History of Present Illness 28 year old M presents to the emergency department with the chief complaint of right ear pain, described as severe, Quality is described as aching, Patient reports no radiation. Patient started experiencing this hour(s) and it has been constant. No relieving factors improve symptom(s), No exacerbating factors reported . Patient notes no other symptoms.. Patient did receive the following treatments prior to arrival, none Related Data Home Medications Medication Instructions Recorded Confirmed Fish Oil 1,200 mg PO BID 03/17/14 04/04/19 aripiprazole [Abilify] 15 mg PO DAILY 03/17/14 03/17/14 calcium carbonate [Tums] 200 mg PO PRN PRN 03/17/14 03/10/19 cholecalciferol (vitamin D3) 2,000 unit PO DAILY 03/17/14 04/04/19 [Vitamin D3] clonidine HCl 0.1 mg PO DIRECTED 03/17/14 04/04/19 divalproex [Depakote ER] 1,000 mg PO .QHS 03/17/14 04/04/19 docusate sodium [Colace] 100 mg PO BID 03/17/14 04/04/19 ibuprofen 200 mg PO PRN 03/17/14 03/17/14 levothyroxine 75 mcg PO DAILY 03/17/14 04/04/19 lithium carbonate 600 mg PO .QHS 03/17/14 03/17/14 melatonin 3 mg PO DAILY 03/17/14 04/04/19 oxcarbazepine [Trileptal] 300 mg PO BID 03/17/14 04/04/19 trazodone 100 mg PO TID 03/17/14 04/04/19 trazodone 200 mg PO .QHS 03/17/14 04/04/19 lorazepam 2 mg PO DAILY PRN 12/21/18 12/21/18 pantoprazole 40 mg PO DAILY 12/21/18 04/04/19 prazosin 2 mg PO QHS 12/21/18 04/04/19 risperidone [Risperdal] 2 mg PO QHS 12/21/18 04/04/19 risperidone [Risperdal] 4 mg PO DAILY 12/21/18 04/04/19 tiagabine [Gabitril] 1 mg PO QNOON 12/21/18 04/04/19 tiagabine [Gabitril] 4 mg PO DAILY 03/10/19 04/04/19 tiagabine [Gabitril] 8 mg PO HS 03/10/19 04/04/19 calcium carbonate [Calcium 600] 600 mg PO BID 04/04/19 04/04/19 magnesium gluconate 27 mg PO BID 04/04/19 04/04/19 vitamin B complex 1 tab PO DAILY 04/04/19 04/04/19 Allergies Allergy/AdvReac Type Severity Reaction Status Date / Time diphenhydramine HCl Allergy Unknown Unverified 04/04/19 16:06 [From Benadryl] latex Allergy Unknown Unverified 04/04/19 16:06 phenytoin sodium Allergy Unknown Unverified 04/04/19 16:06 [From Dilantin] phenytoin sodium extended Allergy Unknown Unverified 04/04/19 16:06 [From Dilantin] General Stated Complaint: EarProblem YNES: 4 Review of Systems Constitutional Constitutional: Reports as per HPI, Denies chills, Denies fever(s) and Denies headache(s) Eyes Eyes: Reports as per HPI, Denies eye discharge and Denies irritation ENT Ears, Nose, Mouth, and Throat: Reports as per HPI and Denies headache(s) Cardiovascular Cardiovascular: Reports as per HPI, Denies chest pain and Denies dyspnea Respiratory Respiratory: Reports as per HPI and Denies dyspnea Gastrointestinal Gastrointestinal: Reports as per HPI, Denies abdominal pain, Denies change in bowel habits, Denies nausea and Denies vomiting Integumentary/Breasts Skin/Breast: Reports as per HPI and Denies rash Neurologic Neurologic: Reports as per HPI and Denies headache(s) [facility] Social History Smoking/Tobacco Use Status: Current-Occasional Tobacco Type: cigarettes and smokeless tobacco Alcohol Intake: never Drug use: Never Do you feel safe at home: Yes Do you feel safe in your relationship?: Yes Exam Const General: cooperative, healthy appearing, comfortable, no acute distress, well developed and well groomed Nutritional Appearance: average body habitus and well nourished Orientation: alert and awake [facility] Head: normal to inspection, normocephalic and atraumatic Ears: hearing grossly normal bilaterally, external ears abnormal (mild erythema to inferior aspect, consistent with abrasion), TM's normal bilaterally and mastoids normal General nose exam: external nose normal and nares normal Face and sinus: normal facial exam, sinuses nontender and face symmetric Mouth: oral mucosae normal, lip normal, tongue normal, oropharynx normal and moist mucous membranes Teeth and gingiva: dentition normal Throat: posterior oropharynx normal, tonsils normal and uvula midline Eyes General: appearance normal, both eyes and all related structures Neck Neck: normal visual inspection, full ROM, no lymphadenopathy and no meningeal signs Resp Effort & Inspection: normal respiratory effort, able to speak in complete sentences and no respiratory distress Auscultation: clear to auscultation bilaterally, no rales, no rhonchi and no wheezes Cardio Rate: regular rate Rhythm: regular rhythm Heart Sounds: S1 normal and S2 normal Skin General skin exam: no rashes or lesions noted Neuro General: alert and awake Cognition: normal cognition Speech: speech normal Gait: normal gait Psych Appearance: grossly normal and well kempt Mental Status: mental status grossly normal Speech and Movement: speech and movement normal Course Vital Signs Vital signs: Vital Signs Temperature 37 C 04/04/19 16:01 Pulse 54 L 04/04/19 16:01 Respiratory Rate 20 04/04/19 16:01 Blood Pressure 108/69 04/04/19 16:01 Pulse Oximetry 97 04/04/19 16:01 Temperature 37 C 04/04/19 16:01 Temperature Source Skin 04/04/19 16:01 Pulse 54 L 04/04/19 16:01 Respiratory Rate 20 04/04/19 16:01 Blood Pressure 108/69 04/04/19 16:01 Blood Pressure Position Sitting 04/04/19 16:01 Pulse Oximetry 97 04/04/19 16:01 Oxygen Delivery Method Room Air 04/04/19 16:01 Oxygen Flow Rate 0 04/04/19 16:01 Pain Level 10 04/04/19 16:01
== END 2019-04-04 16:35 | disposition home or self-care (01) ==
LOC: ER 16:49
PROVIDERS: Emergency Provider Physician Assistant; PCP Family Medicine
DX: H61.891 Other specified disorders of right external ear (principal)
CPT/HCPCS: 99282

== ENCOUNTER 2019-04-08 18:35 | Emergency (ER) | payer MEDICAID, SELFPAY ==
[2019-04-08 18:37] VITALS: BP 122/57; PULSE 72; RESP 18; TEMP 36; O2SAT 92
--- NOTE | 2019-04-08 19:08 | ED.GENADUL_ITS ---
Discharge Plan Disposition Patient Disposition: HOME Condition: Good Discharge Details Chief Complaint: GenMedical Clinical Impression: Dizziness Primary Care Provider: Sandeep Butler ED Provider: Petrona Barnard Home Meds and New Rx's Prescriptions: No Action clonidine HCl 0.1 MG tablet 0.1 mg PO DIRECTED RF: 0 oxcarbazepine [Trileptal] 300 MG tablet 300 mg PO BID RF: 0 trazodone 100 MG tablet 200 mg PO .QHS RF: 0 trazodone 100 MG tablet 100 mg PO TID RF: 0 divalproex [Depakote ER] 500 MG tablet extended release 24 hr 1,000 mg PO .QHS RF: 0 docusate sodium [Colace] 100 MG capsule 100 mg PO BID RF: 0 lithium carbonate 300 MG tablet 600 mg PO .QHS RF: 0 aripiprazole [Abilify] 15 MG tablet 15 mg PO DAILY RF: 0 cholecalciferol (vitamin D3) [Vitamin D3] 2,000 UNIT capsule 2,000 unit PO DAILY RF: 0 Fish Oil 300 MG capsule 1,200 mg PO BID RF: 0 levothyroxine 25 MCG tablet 75 mcg PO DAILY RF: 0 calcium carbonate [Tums] 200 MG tablet,chewable 200 mg PO PRN PRNRF: 0 ibuprofen 200 MG tablet 200 mg PO PRNRF: 0 melatonin 1 MG tablet 3 mg PO DAILY RF: 0 risperidone [Risperdal] 4 mg Tablet 4 mg PO DAILY RF: 0 tiagabine [Gabitril] 4 mg Tablet 1 mg PO QNOON RF: 0 risperidone [Risperdal] 2 mg Tablet 2 mg PO QHS RF: 0 lorazepam 2 mg Tablet 2 mg PO DAILY PRNRF: 0 pantoprazole 40 mg Tablet,Delayed Release (Dr/Ec) 40 mg PO DAILY RF: 0 prazosin 2 mg Capsule 2 mg PO QHS RF: 0 tiagabine [Gabitril] 4 mg Tablet 8 mg PO HS RF: 0 tiagabine [Gabitril] 4 mg Tablet 4 mg PO DAILY RF: 0 calcium carbonate [Calcium 600] 600 mg calcium (1,500 mg) Tablet 600 mg PO BID RF: 0 vitamin B complex Tablet 1 tab PO DAILY RF: 0 magnesium gluconate 27 mg magnesium (500 mg) Tablet 27 mg PO BID RF: 0 Discharge Instructions Instructions: Dizziness (ED) Additional Instructions: Drink plenty of fluids. Continue well-balanced diet. Rest activities as tolerated. For persistence of your symptoms, worsening symptoms or alarming symptoms have reevaluation. For any persistent symptoms have reevaluation with your primary care doctor in the next 2 to 3 days. Please check vital signs twice daily and return for any market abnormalities as discussed. Return if needed sooner Discharge Data Discharge Date/Time-TO BE ENTERED AT DEPARTURE: 04/08/19 21:20 Medical Decision Making Is a 28-year-old patient who is accompanied by his caretakers who report that he is complaining of nausea and mild dizziness after taking 2 shots of a nonalcoholic beverage prior to arrival. Patient reports nausea yet is also reporting that he is hungry and would like to eat dinner. Patient has no complaints of abdominal pain. Patient was complaining of ear pain for the last 2 days and developed mild complaints of dizziness. Patient is unable to quantify his dizziness he is quite vague in his complaints. Patient has no other upper respiratory complaints. Denies fevers or chills. Had been eating and drinking without difficulty at his home. Patient's physical exam was benign at this time. Reviewed vital signs. O2 sats reportedly 92 however patient has no respiratory complaints at this time has no associated tachypnea or increased respiratory effort. Patient in general appears well. Spoke with guardian Gayatri Marin regarding patient's presentation and symptoms. Discussed having further evaluation in the emergency room this evening specifically lab evaluation versus close follow-up and monitoring of vital signs. Her preference at this time is discharged home and monitor vital signs. She does report that he has had a hard week and sometimes when bored or frustrated prefers to go to the emergency room for treatment and management. She would prefer to follow-up with him at home and feels comfortable discharge at this time The patient was stable and requested discharge. Prior to discharge, my usual and customary return precautions were reviewed with the patient - this included follow-up instructions and reasons to return to the Emergency Department if conditions worsens, does not improve as expected, or other new concerns arise. HPI General Date/Time Provider Initiated Documentation: 04/08/19 18:40 . HPI Narrative: There is a 28-year-old patient who is presenting for complaints feeling somewhat dizzy and nauseous after taking 2 shots of O'Doul's 1 nonalcoholic beverage today. Patient was complaining of mild ear pain a few days ago. He does report persistent ear pain. Patient denies any fever, chills, or vomiting. Patient has been eating and drinking without difficulty. Patient reports hunger at this time. Per the caretakers patient is acting at his baseline at this time. Patient denies any cough, upper respiratory symptoms. Denies abdominal pain. Has been urinating without difficulty. Has been moving his bowels without difficulty. Patient denies any falls or injury recently. Denies any headache. No vision change, blurred vision, double vision spots, flashes or floaters of light. Patient denies tinnitus. Patient reports he has been able to ambulate without difficulty. Patient was given a as needed dose of Ativan this afternoon. Related Data Home Medications Medication Instructions Recorded Confirmed Fish Oil 1,200 mg PO BID 03/17/14 04/04/19 aripiprazole [Abilify] 15 mg PO DAILY 03/17/14 03/17/14 calcium carbonate [Tums] 200 mg PO PRN PRN 03/17/14 03/10/19 cholecalciferol (vitamin D3) 2,000 unit PO DAILY 03/17/14 04/04/19 [Vitamin D3] clonidine HCl 0.1 mg PO DIRECTED 03/17/14 04/04/19 divalproex [Depakote ER] 1,000 mg PO .QHS 03/17/14 04/04/19 docusate sodium [Colace] 100 mg PO BID 03/17/14 04/04/19 ibuprofen 200 mg PO PRN 03/17/14 03/17/14 levothyroxine 75 mcg PO DAILY 03/17/14 04/04/19 lithium carbonate 600 mg PO .QHS 03/17/14 03/17/14 melatonin 3 mg PO DAILY 03/17/14 04/04/19 oxcarbazepine [Trileptal] 300 mg PO BID 03/17/14 04/04/19 trazodone 100 mg PO TID 03/17/14 04/04/19 trazodone 200 mg PO .QHS 03/17/14 04/04/19 lorazepam 2 mg PO DAILY PRN 12/21/18 12/21/18 pantoprazole 40 mg PO DAILY 12/21/18 04/04/19 prazosin 2 mg PO QHS 12/21/18 04/04/19 risperidone [Risperdal] 2 mg PO QHS 12/21/18 04/04/19 risperidone [Risperdal] 4 mg PO DAILY 12/21/18 04/04/19 tiagabine [Gabitril] 1 mg PO QNOON 12/21/18 04/04/19 tiagabine [Gabitril] 4 mg PO DAILY 03/10/19 04/04/19 tiagabine [Gabitril] 8 mg PO HS 03/10/19 04/04/19 calcium carbonate [Calcium 600] 600 mg PO BID 04/04/19 04/04/19 magnesium gluconate 27 mg PO BID 04/04/19 04/04/19 vitamin B complex 1 tab PO DAILY 04/04/19 04/04/19 Allergies Allergy/AdvReac Type Severity Reaction Status Date / Time diphenhydramine HCl Allergy Unknown Unverified 04/08/19 18:43 [From Benadryl] latex Allergy Unknown Unverified 04/08/19 18:43 phenytoin sodium Allergy Unknown Unverified 04/08/19 18:43 [From Dilantin] phenytoin sodium extended Allergy Unknown Unverified 04/08/19 18:43 [From Dilantin] General Stated Complaint: Nausea/Vomit/Diar YNES: 4 Review of Systems All systems reviewed & are unremarkable except as noted in HPI and below Constitutional Constitutional: Denies chills, Denies fatigue, Denies fever(s), Denies headache(s) and Denies malaise ENT Ears, Nose, Mouth, and Throat: Denies ear discharge, Reports otalgia, Denies headache(s), Denies nasal congestion, Denies nasal discharge, Denies sinus pain, Denies sinus pressure and Denies sore throat Respiratory Respiratory: Denies cough, Denies pain on inspiration and Denies pain with cough Gastrointestinal Gastrointestinal: Denies abdominal pain, Denies diarrhea, Reports nausea and Denies vomiting Neurologic Neurologic: Denies headache(s) Endocrine Endocrine: Denies fatigue PFSH Social History Smoking/Tobacco Use Status: Current-Occasional Tobacco Type: cigarettes and smokeless tobacco Alcohol Intake: never Drug use: Never Details: Drank 2 sips of odouls today Do you feel safe at home: Yes Do you feel safe in your relationship?: Yes Exam Narrative Exam Narrative: CONST: Healthy appearing patient, in no acute distress. Well hydrated. Alert and oriented. HENMT: Head nomocephalic, normal to inspection. Atraumatic. Hearing grossly normal. TMs with mild effusion on the left. No significant erythema. Right TM appears normal. External canals appear normal. No pharyngeal erythema. Uvula midline EYES: General normal appearance. Alignment normal. Eyelids normal. Conjunctiva normal. NECK: Normal visual inspection. FROM. Trachea midline. No Midline tenderness. CHEST: Normal insepection of the chest. RESP: Normal respiratory effort. Speaking full sentences. No cough. No audible wheezing. No retractions. Breath sounds are clear bilaterally. No rhonchi, rales or wheezing. CARDIO: No JVD. No murmur. Regular rate and rhythm MUSCULOSKELETAL: Normal Gait. FROM of all extremities. Strength intact. No edema distally. NEURO: Alert and awake. Speech clear. Alert and oriented x 3. Speech is clear. Cranial nerves intact as tested III - XI. Normal [id number] test. No pronator drift. Normal heel-coffey test. No Nystagmus. Gait normal. Strength intact in all extremities. Sensation intact in all extremities. PSYCH: Normal affect. Cooperative. Course Vital Signs Vital signs: Vital Signs Temperature 36.0 C L 04/08/19 18:37 Pulse 72 04/08/19 18:37 Respiratory Rate 18 04/08/19 18:37 Blood Pressure 122/57 L 04/08/19 18:37 Pulse Oximetry 92 L 04/08/19 18:37 Temperature 36.0 C L 04/08/19 18:37 Temperature Source Skin 04/08/19 18:37 Pulse 72 04/08/19 18:37 Respiratory Rate 18 04/08/19 18:37 Respiratory Effort Non-Labored 04/08/19 18:41 Blood Pressure 122/57 L 04/08/19 18:37 Blood Pressure Position Sitting 04/08/19 18:37 Pulse Oximetry 92 L 04/08/19 18:37 Oxygen Delivery Method Room Air 04/08/19 18:37 Oxygen Flow Rate 0 04/08/19 18:37
[2019-04-08 19:18] VITALS: O2SAT 93
[2019-04-08 21:04] VITALS: BP 126/69; PULSE 60; RESP 18; TEMP 36.4; O2SAT 96
== END 2019-04-08 21:20 | disposition home or self-care (01) ==
PROVIDERS: Emergency Provider Physician Assistant; PCP Family Medicine
DX: R42 Dizziness and giddiness (principal)
CPT/HCPCS: 36416; 82962; 99282

== ENCOUNTER 2019-05-02 13:31 | Emergency (ER) | payer MEDICAID, SELFPAY ==
--- NOTE | 2019-05-02 13:34 | ED.GENADUL_ITS ---
Discharge Plan Discharge Details Primary Care Provider: Sandeep Butler ED Provider: Reddy Winters Home Meds and New Rx's Prescriptions: No Action clonidine HCl 0.1 MG tablet 0.1 mg PO DIRECTED RF: 0 oxcarbazepine [Trileptal] 300 MG tablet 300 mg PO BID RF: 0 trazodone 100 MG tablet 200 mg PO .QHS RF: 0 trazodone 100 MG tablet 100 mg PO TID RF: 0 divalproex [Depakote ER] 500 MG tablet extended release 24 hr 1,000 mg PO .QHS RF: 0 docusate sodium [Colace] 100 MG capsule 100 mg PO BID RF: 0 lithium carbonate 300 MG tablet 600 mg PO .QHS RF: 0 aripiprazole [Abilify] 15 MG tablet 15 mg PO DAILY RF: 0 cholecalciferol (vitamin D3) [Vitamin D3] 2,000 UNIT capsule 2,000 unit PO DAILY RF: 0 Fish Oil 300 MG capsule 1,200 mg PO BID RF: 0 levothyroxine 25 MCG tablet 75 mcg PO DAILY RF: 0 calcium carbonate [Tums] 200 MG tablet,chewable 200 mg PO PRN PRNRF: 0 ibuprofen 200 MG tablet 200 mg PO PRNRF: 0 melatonin 1 MG tablet 3 mg PO DAILY RF: 0 risperidone [Risperdal] 4 mg Tablet 4 mg PO DAILY RF: 0 tiagabine [Gabitril] 4 mg Tablet 1 mg PO QNOON RF: 0 risperidone [Risperdal] 2 mg Tablet 2 mg PO QHS RF: 0 lorazepam 2 mg Tablet 2 mg PO DAILY PRNRF: 0 pantoprazole 40 mg Tablet,Delayed Release (Dr/Ec) 40 mg PO DAILY RF: 0 prazosin 2 mg Capsule 2 mg PO QHS RF: 0 tiagabine [Gabitril] 4 mg Tablet 8 mg PO HS RF: 0 tiagabine [Gabitril] 4 mg Tablet 4 mg PO DAILY RF: 0 calcium carbonate [Calcium 600] 600 mg calcium (1,500 mg) Tablet 600 mg PO BID RF: 0 vitamin B complex Tablet 1 tab PO DAILY RF: 0 magnesium gluconate 27 mg magnesium (500 mg) Tablet 27 mg PO BID RF: 0 HPI General Date/Time Provider Initiated Documentation: 05/02/19 13:32 . Related Data Home Medications Medication Instructions Recorded Confirmed Fish Oil 1,200 mg PO BID 03/17/14 04/04/19 aripiprazole [Abilify] 15 mg PO DAILY 03/17/14 03/17/14 calcium carbonate [Tums] 200 mg PO PRN PRN 03/17/14 03/10/19 cholecalciferol (vitamin D3) 2,000 unit PO DAILY 03/17/14 04/04/19 [Vitamin D3] clonidine HCl 0.1 mg PO DIRECTED 03/17/14 04/04/19 divalproex [Depakote ER] 1,000 mg PO .QHS 03/17/14 04/04/19 docusate sodium [Colace] 100 mg PO BID 03/17/14 04/04/19 ibuprofen 200 mg PO PRN 03/17/14 03/17/14 levothyroxine 75 mcg PO DAILY 03/17/14 04/04/19 lithium carbonate 600 mg PO .QHS 03/17/14 03/17/14 melatonin 3 mg PO DAILY 03/17/14 04/04/19 oxcarbazepine [Trileptal] 300 mg PO BID 03/17/14 04/04/19 trazodone 100 mg PO TID 03/17/14 04/04/19 trazodone 200 mg PO .QHS 03/17/14 04/04/19 lorazepam 2 mg PO DAILY PRN 12/21/18 12/21/18 pantoprazole 40 mg PO DAILY 12/21/18 04/04/19 prazosin 2 mg PO QHS 12/21/18 04/04/19 risperidone [Risperdal] 2 mg PO QHS 12/21/18 04/04/19 risperidone [Risperdal] 4 mg PO DAILY 12/21/18 04/04/19 tiagabine [Gabitril] 1 mg PO QNOON 12/21/18 04/04/19 tiagabine [Gabitril] 4 mg PO DAILY 03/10/19 04/04/19 tiagabine [Gabitril] 8 mg PO HS 03/10/19 04/04/19 calcium carbonate [Calcium 600] 600 mg PO BID 04/04/19 04/04/19 magnesium gluconate 27 mg PO BID 04/04/19 04/04/19 vitamin B complex 1 tab PO DAILY 04/04/19 04/04/19 Allergies Allergy/AdvReac Type Severity Reaction Status Date / Time diphenhydramine HCl Allergy Unknown Unverified 04/08/19 18:43 [From Benadryl] latex Allergy Unknown Unverified 04/08/19 18:43 phenytoin sodium Allergy Unknown Unverified 04/08/19 18:43 [From Dilantin] phenytoin sodium extended Allergy Unknown Unverified 04/08/19 18:43 [From Dilantin] General YNES: 4 Review of Systems All systems reviewed & are unremarkable except as noted in HPI and below Constitutional Constitutional: Reports as per HPI, Denies chills and Denies fever(s) Eyes Eyes: Denies blurry vision ENT Ears, Nose, Mouth, and Throat: Denies dizziness, Denies sore throat and Denies throat swelling Cardiovascular Cardiovascular: Denies chest pain and Denies dyspnea Respiratory Respiratory: Denies cough and Denies dyspnea Gastrointestinal Gastrointestinal: Denies abdominal pain, Denies diarrhea and Denies vomiting Genitourinary Genitourinary: Denies hematuria and Denies dysuria Musculoskeletal Musculoskeletal: Denies back pain and Denies numbness Integumentary/Breasts Skin/Breast: Denies lesions and Denies rash Neurologic Neurologic: Denies dizziness, Denies focal weakness and Denies numbness Allergic/Immunologic Allergic/Immunologic: Denies throat swelling [facility] Medical History (Updated 05/02/19 @ 13:35 by Cele Flores DO) ADHD (Acute) Asthma (Chronic) PTSD (post-traumatic stress disorder) (Acute) Social History Smoking/Tobacco Use Status: Current-Occasional Tobacco Type: cigarettes and smokeless tobacco Alcohol Intake: never Drug use: Never Details: Drank 2 sips of odouls today Do you feel safe at home: Yes Do you feel safe in your relationship?: Yes
[2019-05-02 13:36] VITALS: BP 132/80; PULSE 108; RESP 14; TEMP 39.6; O2SAT 91
--- NOTE | 2019-05-02 13:44 | ED.GENADUL_ITS ---
Discharge Plan Disposition Patient Disposition: HOME Condition: Stable Discharge Details Chief Complaint: GenMedical Clinical Impression: Influenza Primary Care Provider: Sandeep Butler ED Provider: Reddy Winters [place] Meds and New Rx's Prescriptions: New prednisone 20 mg tablet 60 mg PO DAILY 4 Days Qty: 12 RF: 0 oseltamivir [Tamiflu] 75 mg capsule 75 mg PO BID 5 Days Qty: 10 RF: 0 Continued clonidine HCl 0.1 MG tablet 0.1 mg PO DIRECTED RF: 0 oxcarbazepine [Trileptal] 300 MG tablet 300 mg PO BID RF: 0 trazodone 100 MG tablet 200 mg PO .QHS RF: 0 trazodone 100 MG tablet 100 mg PO TID RF: 0 divalproex [Depakote ER] 500 MG tablet extended release 24 hr 1,000 mg PO .QHS RF: 0 docusate sodium [Colace] 100 MG capsule 100 mg PO BID RF: 0 lithium carbonate 300 MG tablet 600 mg PO .QHS RF: 0 aripiprazole [Abilify] 15 MG tablet 15 mg PO DAILY RF: 0 cholecalciferol (vitamin D3) [Vitamin D3] 2,000 UNIT capsule 2,000 unit PO DAILY RF: 0 Fish Oil 300 MG capsule 1,200 mg PO BID RF: 0 levothyroxine 25 MCG tablet 75 mcg PO DAILY RF: 0 calcium carbonate [Tums] 200 MG tablet,chewable 200 mg PO PRN PRNRF: 0 ibuprofen 200 MG tablet 200 mg PO PRNRF: 0 melatonin 1 MG tablet 3 mg PO DAILY RF: 0 risperidone [Risperdal] 4 mg Tablet 4 mg PO DAILY RF: 0 tiagabine [Gabitril] 4 mg Tablet 1 mg PO QNOON RF: 0 risperidone [Risperdal] 2 mg Tablet 2 mg PO QHS RF: 0 lorazepam 2 mg Tablet 2 mg PO DAILY PRNRF: 0 pantoprazole 40 mg Tablet,Delayed Release (Dr/Ec) 40 mg PO DAILY RF: 0 prazosin 2 mg Capsule 2 mg PO QHS RF: 0 tiagabine [Gabitril] 4 mg Tablet 8 mg PO HS RF: 0 tiagabine [Gabitril] 4 mg Tablet 4 mg PO DAILY RF: 0 calcium carbonate [Calcium 600] 600 mg calcium (1,500 mg) Tablet 600 mg PO BID RF: 0 vitamin B complex Tablet 1 tab PO DAILY RF: 0 magnesium gluconate 27 mg magnesium (500 mg) Tablet 27 mg PO BID RF: 0 Discharge Instructions Instructions: Influenza (ED) Additional Instructions: he can have 600mg ibuprofen and 1000mg tylenol every 6 hours for fever if needed if not better by the end of this week follow up with your primary care provider return to the emergency department for worsening difficulty breathing, if he feels more ill or has persistent vomit Medical Decision Making 28-year-old male with past medical history of Klinefelter syndrome, seizures, ADHD, PTSD, and developmental delay comes in with care takers as he has not felt well since yesterday with sinus pressure, weakness, chills, and cough. Denies vomit, recent travel, chest pain, abdomina lpain. Localizes the pain to the frontal sinuses, eomi, normal oropharynx with no pain over hyoid or restricted neck movements and has midline uvula. Has diminished breath sounds at the bases with some very faint wheezing at the apices. Normal tm's. Is noted to have fever here. Will obtain lab work, check for flu and chest xray. Given his sinus pain will also image to eval for possible sinusitis. xray and ct negative and labs ressuring, mild sal from dehydration. The flu swab was negative but apparently he fought very hard with the test so feel it is likely a false negative so will start empirically on tamiflu. Advised f/u with pcp and return precautions. He is eating and HD stable and appropriate for outpatient management Medical Records Medical records reviewed: Yes I reviewed the patient's medical records. Imaging Data Radiologic Study: Attestation: I personally reviewed and interpreted this imaging study as follows: Imaging: X-Ray My impression: no acute findings Radiologic Study #2: Attestation: I personally reviewed and interpreted this imaging study as follows: Imaging: CT Scan Radiologist's impression: no acute findings Lab Data Lab results reviewed: Yes I reviewed the patient's lab results. HPI General Mode of arrival: wheelchair . Date/Time Provider Initiated Documentation: 05/02/19 13:32 . Limitations to Documentation: no limitations . Information obtained by: patient and family (caretakers) . History of Present Illness 28 year old M presents to the emergency department with the chief complaint of not feeling well, described as moderate, Patient started experiencing this day(s) (1) and it has been constant. No relieving factors improve symptom(s), No exacerbating factors reported . Patient notes cough and weakness. Patient did receive the following treatments prior to arrival, none Related Data Home Medications Medication Instructions Recorded Confirmed Fish Oil 1,200 mg PO BID 03/17/14 04/04/19 aripiprazole [Abilify] 15 mg PO DAILY 03/17/14 03/17/14 calcium carbonate [Tums] 200 mg PO PRN PRN 03/17/14 03/10/19 cholecalciferol (vitamin D3) 2,000 unit PO DAILY 03/17/14 04/04/19 [Vitamin D3] clonidine HCl 0.1 mg PO DIRECTED 03/17/14 04/04/19 divalproex [Depakote ER] 1,000 mg PO .QHS 03/17/14 04/04/19 docusate sodium [Colace] 100 mg PO BID 03/17/14 04/04/19 ibuprofen 200 mg PO PRN 03/17/14 03/17/14 levothyroxine 75 mcg PO DAILY 03/17/14 04/04/19 lithium carbonate 600 mg PO .QHS 03/17/14 03/17/14 melatonin 3 mg PO DAILY 03/17/14 04/04/19 oxcarbazepine [Trileptal] 300 mg PO BID 03/17/14 04/04/19 trazodone 100 mg PO TID 03/17/14 04/04/19 trazodone 200 mg PO .QHS 03/17/14 04/04/19 lorazepam 2 mg PO DAILY PRN 12/21/18 12/21/18 pantoprazole 40 mg PO DAILY 12/21/18 04/04/19 prazosin 2 mg PO QHS 12/21/18 04/04/19 risperidone [Risperdal] 2 mg PO QHS 12/21/18 04/04/19 risperidone [Risperdal] 4 mg PO DAILY 12/21/18 04/04/19 tiagabine [Gabitril] 1 mg PO QNOON 12/21/18 04/04/19 tiagabine [Gabitril] 4 mg PO DAILY 03/10/19 04/04/19 tiagabine [Gabitril] 8 mg PO HS 03/10/19 04/04/19 calcium carbonate [Calcium 600] 600 mg PO BID 04/04/19 04/04/19 magnesium gluconate 27 mg PO BID 04/04/19 04/04/19 vitamin B complex 1 tab PO DAILY 04/04/19 04/04/19 oseltamivir [Tamiflu] 75 mg PO BID 5 Days #10 cap 05/02/19 prednisone 60 mg PO DAILY 4 Days #12 tab 05/02/19 Previous Rx's Medication Instructions Recorded oseltamivir [Tamiflu] 75 mg PO BID 5 Days #10 cap 05/02/19 prednisone 60 mg PO DAILY 4 Days #12 tab 05/02/19 Allergies Allergy/AdvReac Type Severity Reaction Status Date / Time diphenhydramine HCl Allergy Unknown Unverified 04/08/19 18:43 [From Benadryl] latex Allergy Unknown Unverified 04/08/19 18:43 phenytoin sodium Allergy Unknown Unverified 04/08/19 18:43 [From Dilantin] phenytoin sodium extended Allergy Unknown Unverified 04/08/19 18:43 [From Dilantin] General Stated Complaint: GenMedical YNES: 3 Review of Systems All systems reviewed & are unremarkable except as noted in HPI and below ENT Ears, Nose, Mouth, and Throat: Denies change in voice Cardiovascular Cardiovascular: Denies chest pain and Denies dyspnea Respiratory Respiratory: Denies dyspnea Gastrointestinal Gastrointestinal: Denies abdominal pain, Denies nausea and Denies vomiting Musculoskeletal Musculoskeletal: Denies joint swelling Integumentary/Breasts Skin/Breast: Denies rash [facility] Medical History (Updated 05/02/19 @ 15:32 by Reddy Winters MD) ADHD (Acute) Asthma (Chronic) PTSD (post-traumatic stress disorder) (Acute) Social History Smoking/Tobacco Use Status: Current-Occasional Tobacco Type: cigarettes and smokeless tobacco Alcohol Intake: never Drug use: Never Details: Drank 2 sips of odouls today Do you feel safe at home: Yes Do you feel safe in your relationship?: Yes Exam Const General: no acute distress Orientation: alert HENMT Head: normal to inspection Ears: external ears normal General nose exam: external nose normal Mouth: moist mucous membranes Eyes General: appearance normal, both eyes and all related structures Neck Neck: normal visual inspection Resp Effort & Inspection: normal respiratory effort and able to speak in complete sentences Cardio Rate: regular rate Skin General skin exam: no rashes or lesions noted Neuro General: alert and oriented x3 Extrem General: normal to inspection Psych Mental Status: mental status grossly normal Course Vital Signs Vital signs: Vital Signs Temperature 37.5 C 05/02/19 13:36 Pulse 108 H 05/02/19 13:36 Respiratory Rate 14 05/02/19 13:36 Blood Pressure 132/80 05/02/19 13:36 Pulse Oximetry 91 L 05/02/19 13:36 Temperature 37.5 C 05/02/19 13:36 Temperature Source Temporal Artery Scan 05/02/19 13:36 Pulse 108 H 05/02/19 13:36 Respiratory Rate 14 05/02/19 13:36 Respiratory Effort Non-Labored 05/02/19 13:40 Blood Pressure 132/80 05/02/19 13:36 Blood Pressure Position Sitting 05/02/19 13:36 Pulse Oximetry 91 L 05/02/19 13:36 Oxygen Delivery Method Room Air 05/02/19 13:36 Oxygen Flow Rate 0 05/02/19 13:36
[2019-05-02] MEDS: Albuterol/Ipratropium 3 ML UPD VIAL UPD (14:00)
[2019-05-02] MEDS: Acetaminophen 500 MG TAB 1000 MG PO (14:12)
[2019-05-02] MEDS: Normal Saline 1,000 ML 1000 ML IV (14:31)
[2019-05-02] MEDS: methylPREDNISolone SUCC 125 MG VIAL IVP (14:31)
[2019-05-02] MEDS: Normal Saline Flush 10 ML SYR IVP (14:31)
[2019-05-02 14:36] LABS: BE (Venous) 5.2 mmol/L (-3-3); HCO3 (Venous) 30 mmol/L (22-28); O2 Sat (Venous) 37 % (70-80); TCO2 (Venous) 27 mmol/L (22-29); pCO2 (Venous) 47 mm/Hg (34-47); pH (Venous) 7.41 (7.35-7.45); pO2 (Venous) 23 mm/Hg (28-44)
[2019-05-02 14:39] LABS: Absolute Basophil Count 0.01 k/cumm (0.0-0.2); Absolute Lymphocyte Count 1.03 k/cumm (1.2-3.4); Absolute Monocyte Count 0.47 k/cumm (0.11-0.7); Absolute Neutrophil Count 2.87 k/cumm (1.2-6.7); Basophils % 0.2; Eosinophils % 2.2; HCT 42.9 % (40.0-50.0); HGB 13.9 g/dL (13.5-17.5); Mean Corp. HGB Concentration 32.4 g/dL (32.0-36.0); Mean Corpuscular Volume 95.8 fL (80-95); Mean Platelet Volume 9.8 fL (8.0-11.0); Monocytes % 10.5; Neutrophils % 64.1; Platelet Count 176 x1000/uL (130-400); RBC 4.48 m/cumm (4.50-6.00); RBC Distribution Width 13.8 % (11.8-14.1); White Blood Cell Count 4.48 k/cumm (4.4-10.8)
[2019-05-02 14:40] LABS: Lactate 1.1 mmol/L (0.6-1.4)
--- NOTE | 2019-05-02 15:00 | DI.RAD_ITS ---
EXAM: XR CHEST 2V PA AND LATERAL INDICATION: COUGH. COMPARISON: No exams were available for comparison TECHNIQUE: 2D digital imaging was performed. FINDINGS: The exam is limited by technique and poor inspiration. The lungs are grossly clear. The heart size is normal. IMPRESSION: Limited exam. No gross evidence of an acute abnormality.
[2019-05-02 15:07] LABS: Lithium < 0.20 mmol/L (0.60-1.20)
[2019-05-02 15:09] LABS: ALT 27 U/L (16-63); AST 17 U/L (15-37); Albumin 4.6 g/dL (3.4-5.0); Alkaline Phosphatase 41 U/L (46-116); Anion Gap 11.5 mmol/L (3-11); BUN 20 mg/dL (7-18); Bilirubin, Total 0.4 mg/dL (0.2-1.0); CO2 28.5 mmol/L (21.0-32.0); CREATININE 1.37 mg/dL (0.70-1.30); Calcium 10.2 mg/dL (8.5-10.1); Chloride 100 mmol/L (98-107); Glucose 104 mg/dL (74-106); Lipase 96 U/L (73-393); Magnesium 1.8 mg/dL (1.8-2.4); Potassium 4.8 mmol/L (3.5-5.1); Sodium 140 mmol/L (136-145); TSH (W/Ref FT4) 0.26 uIU/mL (0.36-3.74)
--- NOTE | 2019-05-02 15:16 | DI.CT_ITS ---
EXAM: CT HEAD WO CT HEAD WO CLINICAL HISTORY: headache. headache TECHNIQUE: Imaging Protocol: Axial computed tomography images with coronal and sagittal reformatted images were created and reviewed COMPARISON: No exams were available for comparison FINDINGS: Ventricles and Extra axial spaces: Normal in size and morphology for the patient's age. Hemorrhage: None. Cerebral parenchyma: Normal. Midline shift: None. Brainstem/Cerebellum: Normal. Calvarium: Normal. Visualized Paranasal sinuses/Mastoids: Clear. IMPRESSION: Normal CT of the head. DATA REPOSITORY: All CT scans at this facility are submitted to the National Radiology Data Registry (NRDR) Dose Index Registry (DIR) with the [employer] ([employer]). RADIATION OPTIMIZATION: All CT scans at this facility use at least one of these dose optimization te chniques: automated exposure control; mA and/or kV adjustment per patient size (includes targeted exa ms where dose is matched to clinical indication); or iterative reconstruction.
[2019-05-02 15:30] LABS: FREE T4 0.81 ng/dL (0.76-1.46)
[2019-05-02 15:43] VITALS: TEMP 39.3
[2019-05-02] MEDS: Oseltamivir 75 MG CAP (15:46)
[2019-05-02 16:18] VITALS: BP 151/116; PULSE 103; O2SAT 93
[2019-05-02 16:47] VITALS: BP 151/116; PULSE 102; O2SAT 90
== END 2019-05-02 16:25 | disposition home or self-care (01) ==
PROVIDERS: Emergency Provider Emergency Medicine; PCP Family Medicine
DX: J11.1 Influenza due to unidentified influenza virus with other respiratory manifestations (principal); R05 Cough; R51 Headache; E86.0 Dehydration; N17.9 Acute kidney failure, unspecified
CPT/HCPCS: 36415; 80053; 82805; 83690; 87040; 87449; 94640; 96361; 96374; 99284; 70450; 71046; 80164; 80178; 83605; 83735; 84439; 84443; 85025; J2930; J7620

== ENCOUNTER 2019-06-09 11:58 | Outpatient (CLI) | payer MEDICAID, SELFPAY ==
--- NOTE | 2019-06-09 | DI.RAD_ITS ---
EXAM: XR HIP LT COMPLETE AP PELVIS INDICATION: LT HIP PAIN M25.552. COMPARISON: No exams were available for comparison TECHNIQUE: 2D digital imaging was performed. FINDINGS: No fracture or dislocation is seen. Hip joint spaces are well maintained. No joint space calcificat ions are seen. There is large amount of stool incidentally noted. IMPRESSION: Large quantity of stool. No bony abnormalities are seen. DATA REPOSITORY: RADIATION DOSE DELIVERED:
--- NOTE | 2019-06-09 | DI.RAD_ITS ---
EXAM: XR FEMUR LT INDICATION: LT LEG PAIN M79.605, LT KNEE PAIN M25.562, LT HIP PAIN M25.552. COMPARISON: No exams were available for comparison TECHNIQUE: 2D digital imaging was performed. FINDINGS: No fracture or other bony abnormality is seen. No lytic or blastic bony lesion is seen. There are no soft tissue calcifications. IMPRESSION: Negative left femur. DATA REPOSITORY: RADIATION DOSE DELIVERED:
--- NOTE | 2019-06-09 12:40 | DI.RAD_ITS ---
EXAM: XR KNEE LT 3V AP,LAT,ALIN INDICATION: LT KNEE PAIN M25.562. COMPARISON: XR KNEE LT 4V AP,LAT,ALIN,PAT from 01/18/2019 TECHNIQUE: 2D digital imaging was performed. FINDINGS: Joint spaces are well maintained. No joint effusion is seen. IMPRESSION: Negative left knee. DATA REPOSITORY: RADIATION DOSE DELIVERED:
== END 2019-06-09 12:18 ==
PROVIDERS: PCP Family Medicine; Visit Provider Specialist/Technologist Athletic Trainer
DX: M79.605 Pain in left leg (principal); M25.562 Pain in left knee; M25.552 Pain in left hip
CPT/HCPCS: 73552; 73562; 73502

== ENCOUNTER 2019-10-10 02:23 | Outpatient (CLI) | payer MEDICAID, SELFPAY ==
[2019-10-10 13:04] LABS: HCT 38.8 % (40.0-50.0); HGB 12.3 g/dL (13.5-17.5); Mean Corp. HGB Concentration 31.7 g/dL (32.0-36.0); Mean Corpuscular Hemoglobin 30.2 pg (27.0-33.0); Mean Corpuscular Volume 95.3 fL (80-95); Mean Platelet Volume 10.3 fL (8.0-11.0); Platelet Count 220 x1000/uL (130-400); RBC 4.07 m/cumm (4.50-6.00); RBC Distribution Width 13.7 % (11.8-14.1); White Blood Cell Count 5.84 k/cumm (4.4-10.8)
[2019-10-10 13:47] LABS: ALT 28 U/L (16-63); AST 16 U/L (15-37); Albumin 4.3 g/dL (3.4-5.0); Alkaline Phosphatase 47 U/L (46-116); Anion Gap 11.5 mmol/L (3-11); BUN 30 mg/dL (7-18); Bilirubin, Total 0.3 mg/dL (0.2-1.0); CO2 26.5 mmol/L (21.0-32.0); CREATININE 0.96 mg/dL (0.70-1.30); Calcium 9.6 mg/dL (8.5-10.1); Calculated LDL 261 mg/dL (<100); Chloride 102 mmol/L (98-107); Cholesterol 364 mg/dL (<200); Glucose 129 mg/dL (74-106); HDL Cholesterol 40 mg/dL (40-60); Potassium 3.9 mmol/L (3.5-5.1); Sodium 140 mmol/L (136-145); TSH 0.65 uIU/mL (0.36-3.74); Total Protein 7.7 g/dL (6.4-8.2); Triglyceride 315 mg/dL (<150)
== END 2019-10-10 02:43 ==
PROVIDERS: PCP Family Medicine; Visit Provider Physician Assistant
DX: E03.9 Hypothyroidism, unspecified (principal); G40.909 Epilepsy, unspecified, not intractable, without status epilepticus; E78.5 Hyperlipidemia, unspecified
CPT/HCPCS: 36415; 80053; 80061; 85027; 84443

== ENCOUNTER 2020-02-02 09:28 | Outpatient (CLI) | payer MEDICAID, SELFPAY ==
--- NOTE | 2020-02-02 | DI.RAD_ITS ---
EXAM: XR ABDOMEN FLAT PLATE CLINICAL HISTORY: CONSTIPATION K59.00 TECHNIQUE: COMPARISON: No exams were available for comparison FINDINGS: Two views were obtained. Bowel gas pattern is unremarkable with normal fecal burden. No gross organ omegaly. IMPRESSION: Negative examination of the abdomen RADIATION DOSE DELIVERED: Total DLP
== END 2020-02-02 09:48 ==
PROVIDERS: PCP Nurse Practitioner Family; Visit Provider Internal Medicine
DX: K59.00 Constipation, unspecified (principal)
CPT/HCPCS: 74018

== ENCOUNTER 2020-02-02 13:29 | Outpatient (REF) | payer MEDICAID, SELFPAY ==
[2020-02-02 20:58] LABS: Calculated LDL 111 mg/dL (<100); Cholesterol 187 mg/dL (<200); HDL Cholesterol 47 mg/dL (40-60); Triglyceride 149 mg/dL (<150)
== END 2020-02-02 13:49 ==
LOC: NCHCN 13:29
PROVIDERS: PCP Nurse Practitioner Family; Visit Provider Internal Medicine
DX: E78.5 Hyperlipidemia, unspecified (principal)
CPT/HCPCS: 80061

== ENCOUNTER 2020-02-06 01:09 | Outpatient (CLI) | payer MEDICAID, SELFPAY ==
--- NOTE | 2020-02-06 | DI.DEXA_ITS ---
EXAM: XR DEXA BONE DENSITY W/WO GOLDEN CLINICAL HISTORY: EPILEPSY,H/O OSTEOPENIA TECHNIQUE: COMPARISON: CR XR HIP LT COMPLETE AP PELVIS from 06/09/2019 FINDINGS: Lateral Spine Image: Unremarkable. No compression deformities identified. Left hip: Total T-Score: -1.7 Total Z-Score: -1.7 T- and Z-scores: Findings consistent with osteopenia and increased fracture risk. Lumbar Spine: Total T-Score: 0.2 Total Z-Score: 0.2 T- and Z-scores: Within normal limits. IMPRESSION: No evidence of osteoporosis.
== END 2020-02-06 01:29 ==
PROVIDERS: PCP Nurse Practitioner Family; Visit Provider Physician Assistant
DX: M85.88 Other specified disorders of bone density and structure, other site (principal)
CPT/HCPCS: 77080

== ENCOUNTER 2020-04-09 14:11 | Outpatient (REF) | payer MEDICAID, SELFPAY ==
[2020-04-09 14:03] LABS: ALT 27 U/L (16-63); AST 17 U/L (15-37); Albumin 3.9 g/dL (3.4-5.0); Alkaline Phosphatase 36 U/L (46-116); Bilirubin, Total 0.1 mg/dL (0.2-1.0); Calculated LDL 116 mg/dL (<100); Cholesterol 172 mg/dL (<200); HDL Cholesterol 42 mg/dL (40-60); Total Protein 7.2 g/dL (6.4-8.2); Triglyceride 70 mg/dL (<150)
[2020-04-09 14:19] LABS: Bilirubin, Direct < 0.05 mg/dL (0.00-0.20)
== END 2020-04-09 14:31 ==
LOC: NCHCN 14:11
PROVIDERS: PCP Nurse Practitioner Family; Visit Provider Nurse Practitioner Family
DX: E78.5 Hyperlipidemia, unspecified (principal); E03.9 Hypothyroidism, unspecified
CPT/HCPCS: 80061; 80076

== ENCOUNTER 2021-04-10 16:12 | Emergency (ER) | payer MEDICAID, SELFPAY ==
--- NOTE | 2021-04-10 16:15 | RT.EKG_ITS ---
APPROVED REPORT Exam: Resting ECG Reason for Exam: jaw pain Patient Location: E HR:58 bpm ECG Measurements Heart Rate 58 AXIS AL 138 P 43 QRSd 102 QRS 191 QT 405 T -32 QTc 396 Conclusion Sinus bradycardia...rate< 60 Probable right ventricular hypertrophy...prominent R or R' w/ RAD or MYESHA Abnormal T, consider ischemia, diffuse leads...T <-0.20mV, ant/lat/inf. Sinus. T wave inversion III, aVR. No STEMI. I have reviewed and interpreted ECG and agree with software generated interpretation.
[2021-04-10 16:19] VITALS: BP 130/53; PULSE 73; RESP 18; TEMP 36.4; O2SAT 94
[2021-04-10 16:29] VITALS: RESP 18
--- NOTE | 2021-04-10 16:30 | DI.RAD_ITS ---
Exam(s) XR CHEST 2V PA LATERAL EXAM: XR CHEST 2V PA LATERAL CLINICAL HISTORY: pain TECHNIQUE: 2D digital imaging was performed of the chest. Two images were obtained. PA and lateral views were obtained. COMPARISON: CR XR CHEST 2V PA LATERAL from 05/02/2019 FINDINGS: MEDIASTINUM: Normal. HEART: Normal. PULMONARY VASCULATURE: Normal. LUNGS: Clear. PLEURAL SPACE: No pleural effusion or pneumothorax. BONE:Within normal limits for the patient's age. OTHER FINDINGS:Normal. IMPRESSION: No acute pulmonary findings. DATA REPOSITORY: RADIATION DOSE DELIVERED:
[2021-04-10 18:16] LABS: Abs Immature Grans 0.01 10^3/uL (0.0-0.06); Absolute Basophil Count 0.05 10^3/uL (0.0-0.2); Absolute Eosinophil Count 0.29 10^3/uL (0.0-0.7); Absolute Lymphocyte Count 3.28 10^3/uL (1.2-3.4); Absolute Monocyte Count 0.35 10^3/uL (0.1-0.8); Absolute Neutrophil Count 1.59 10^3/uL (1.2-6.7); Basophils % 0.9; Eosinophils % 5.2; HCT 39.7 % (40.0-50.0); HGB 12.7 g/dL (13.5-17.5); Immature Grans % 0.2; Lymphocytes % 58.9; MCH 31.1 pg (27.0-33.0); MCV 97.3 fL (80-95); MPV 10.1 fL (8.0-11.0); Monocytes % 6.3; Neutrophils % 28.5; Nucleated RBC 0 %; Platelet Count 179 10^3/uL (130-400); RBC 4.08 10^6/uL (4.36-5.78); RDW 13.4 % (11.8-14.1); RDW-SD 47.8 fL; WBC 5.57 10^3/uL (4.4-10.8)
[2021-04-10 18:17] LABS: ALT 23 U/L (16-63); AST 13 U/L (15-37); Albumin 3.9 g/dL (3.4-5.0); Alkaline Phosphatase 45 U/L (46-116); Anion Gap 4.2 mmol/L (3-11); BUN 14 mg/dL (7-18); Bilirubin, Total 0.3 mg/dL (0.2-1.0); CO2 32.8 mmol/L (21.0-32.0); Calcium 8.9 mg/dL (8.5-10.1); Chloride 103 mmol/L (98-107); Glucose 89 mg/dL (74-106); Magnesium 1.8 mg/dL (1.8-2.4); Sodium 140 mmol/L (136-145); Total Protein 7.5 g/dL (6.4-8.2); Troponin I < 50 ng/L (<or=60)
--- NOTE | 2021-04-10 18:39 | ED.GENADUL_ITS ---
Discharge Plan Disposition Patient Disposition: HOME Condition: Stable Discharge Details Clinical Impression: Mouth pain Primary Care Provider: Elke Tucker ED Provider: Oziel Diane Home Meds and New Rx's Prescriptions: New amoxicillin 875 mg tablet 875 mg PO BID Qty: 20 RF: 0 Continued pantoprazole 20 mg tablet,delayed release (DR/EC) 20 mg PO DAILY RF: 0 atorvastatin 40 mg tablet 40 mg PO DAILY RF: 0 tiagabine 2 mg tablet 2 mg PO .noon RF: 0 fluticasone propionate [Flonase Allergy Relief] 50 mcg/actuation spray,suspension 1 spray intranasal BID RF: 0 ibuprofen 200 mg tablet 600 mg PO PRNRF: 0 magnesium oxide 500 mg tablet 500 mg PO BID RF: 0 trazodone 100 MG tablet 200 mg PO .QHS RF: 0 trazodone 100 MG tablet 100 mg PO TID RF: 0 divalproex [Depakote ER] 500 MG tablet extended release 24 hr 1,000 mg PO .QHS RF: 0 docusate sodium [Colace] 100 MG capsule 100 mg PO BID RF: 0 lithium carbonate 300 MG tablet 600 mg PO .QHS RF: 0 cholecalciferol (vitamin D3) [Vitamin D3] 2,000 UNIT capsule 2,000 unit PO DAILY RF: 0 Fish Oil 300 MG capsule 1,200 mg PO BID RF: 0 levothyroxine 25 MCG tablet 75 mcg PO DAILY RF: 0 melatonin 1 MG tablet 3 mg PO DAILY RF: 0 oxcarbazepine [Trileptal] 300 mg tablet 900 mg PO BID RF: 0 risperidone [Risperdal] 4 mg Tablet 4 mg PO DAILY RF: 0 risperidone [Risperdal] 2 mg Tablet 2 mg PO QHS RF: 0 lorazepam 2 mg Tablet 2 mg PO DAILY PRNRF: 0 prazosin 2 mg capsule 4 mg PO QHS RF: 0 tiagabine [Gabitril] 4 mg Tablet 8 mg PO HS RF: 0 tiagabine [Gabitril] 4 mg Tablet 4 mg PO DAILY RF: 0 calcium carbonate [Calcium 600] 600 mg calcium (1,500 mg) Tablet 600 mg PO BID RF: 0 vitamin B complex Tablet 1 tab PO DAILY RF: 0 Discharge Instructions Additional Instructions: Work-up in the ER does not reveal any obvious emergent process. Amoxicillin as directed. [id number] Tylenol as directed. Cool and/or warm compresses every 2 hours for 20 minutes. Please watch for new or worsening symptoms and return to the ER for any concerns. Lastly, please contact your primary care provider tomorrow to discuss outpatient reevaluation and follow-up with your oral surgeon as scheduled Discharge Data Discharge Date/Time-TO BE ENTERED AT DEPARTURE: 04/10/21 19:30 Medical Decision Making This is a 30-year-old male presenting with a small animal caretaker for evaluation of at least 6-week history of mouth pain but then did notice some aching to his left shoulder over the past few days. He has poor dentition throughout but no signs of this. There is no facial swelling. No trismus. He has been referred to an oral surgeon for more definitive dental care. Given the duration of his mouth pain, poor dentition, I do believe initiating antibiotic therapy is reasonable given his left arm pain in association with his jaw pain, although extremely low suspicion for ACS, I do believe obtaining routine laboratory values, and a single troponin and EKG is prudent to rule out cardiac etiology. Laboratory values are unremarkable for any emergent process. No evidence of leukocytosis. Electrolytes unremarkable, renal function normal, troponin less than 50. Chest x-ray unremarkable Upon reevaluation patient is resting comfortably. Has no additional questions or concerns. He is comfortable discharge into the care of his caretakers. Director Intelligence Analysis Programs and patient had no additional questions or concerns. First dose of amoxicillin to be given here and will provide a prescription. Strict discharge and return precautions provided This documentation was generated using [employer] dictation system, please disregard any oddities of phrase or misspellings. Medical Records Medical records reviewed: Yes I reviewed the patient's medical records. Imaging Data Radiologic Study: Attestation: I personally reviewed and interpreted this imaging study as follows: Imaging: X-Ray Radiologist's impression: PROCEDURE INFORMATION: Exam: XR Chest Exam date and time: 04/10/2021 4:40 PM Age: 30 years old Clinical indication: Pain TECHNIQUE: Imaging protocol: XR of the chest. Views: 2 views. COMPARISON: CR XR CHEST 2V PA LATERAL 05/02/2019 2:44 PM FINDINGS: Lungs: Unremarkable. No consolidation. Pleural spaces: Unremarkable. No pleural effusion. No pneumothorax. Heart/Mediastinum: Unremarkable. No cardiomegaly. Bones/joints: Unremarkable. IMPRESSION: No acute findings. Lab Data Lab results reviewed: Yes I reviewed the patient's lab results. Labs: Laboratory Tests Range/Units 04/10/21 17:50 Sodium (136-145) mmol/L 140 Potassium (3.5-5.1) mmol/L 4.0 Chloride (98-107) mmol/L 103 Carbon Dioxide (21.0-32.0) mmol/L 32.8 H Anion Gap (3-11) mmol/L 4.2 BUN (7-18) mg/dL 14 Creatinine (0.70-1.30) mg/dL 1.0 Estimated GFR/1.73 m2 (mL/min/1.73m2) >= 60.00 Glucose (74-106) mg/dL 89 Calcium (8.5-10.1) mg/dL 8.9 Magnesium (1.8-2.4) mg/dL 1.8 Total Bilirubin (0.2-1.0) mg/dL 0.3 AST (15-37) U/L 13 L ALT (16-63) U/L 23 Alkaline Phosphatase (46-116) U/L 45 L Troponin I (<or=60) ng/L < 50 Total Protein (6.4-8.2) g/dL 7.5 Albumin (3.4-5.0) g/dL 3.9 ECG Data Attestation: I personally reviewed and interpreted this ECG (s) as follows: Interpretation: Please see official report by Dr. Flores. Sinus bradycardia, ventricular to 58. Nonspecific T wave abnormalities. No STEMI. No comparison HPI General Mode of arrival: ambulatory . Date/Time Provider Initiated Documentation: 04/10/21 16:28 . Limitations to Documentation: other (Base cognitive mental delay) . Information obtained by: patient (And small animal caretaker) . HPI Narrative: This is a 30-year-old male, past medical history of ADHD, asthma, GERD, hyperlipidemia, hypothyroidism, PTSD, Klinefelter syndrome, cognitive mental delay, epilepsy, presenting to the ER reporting lower jaw pain slightly worse in the last for at least 6 weeks. He has not had this evaluated. He does not smoke but occasiona jillian uses chewing tobacco. He did take [id number] Tylenol today with little relief. Patient has not seen his dentist recently and is in the process of being referred to an oral surgeon given his overall dentition and need for higher level of care. Patient states that he smokes marijuana occasionally and the pain in his mouth began after smoking the marijuana. She also states that his left shoulder has been bothering him for couple of days, dull ache, worse with movement. He denies any injury. He denies recent illness or trauma, headache, sore throat, neck pain, chest pain, shortness of breath, abdominal pain, nausea, vomiting, numbness, tingling, weakness. Unfortunately he is a r ather vague and poor historian. Related Data Home Medications Medication Instructions Recorded Confirmed Fish Oil 1,200 mg PO BID 03/17/14 04/10/21 cholecalciferol (vitamin D3) 2,000 unit PO DAILY 03/17/14 04/10/21 [Vitamin D3] divalproex [Depakote ER] 1,000 mg PO .QHS 03/17/14 04/10/21 docusate sodium [Colace] 100 mg PO BID 03/17/14 04/10/21 levothyroxine 75 mcg PO DAILY 03/17/14 04/10/21 lithium carbonate 600 mg PO .QHS 03/17/14 04/17/20 melatonin 3 mg PO DAILY 03/17/14 04/10/21 trazodone 100 mg PO TID 03/17/14 04/10/21 trazodone 200 mg PO .QHS 03/17/14 04/10/21 lorazepam 2 mg PO DAILY PRN 12/21/18 04/10/21 risperidone [Risperdal] 2 mg PO QHS 12/21/18 04/10/21 risperidone [Risperdal] 4 mg PO DAILY 12/21/18 04/10/21 tiagabine [Gabitril] 4 mg PO DAILY 03/10/19 04/10/21 tiagabine [Gabitril] 8 mg PO HS 03/10/19 04/10/21 calcium carbonate [Calcium 600] 600 mg PO BID 04/04/19 04/10/21 vitamin B complex 1 tab PO DAILY 04/04/19 04/17/20 fluticasone propionate 50 1 spray INTRANASAL BID 02/21/20 04/10/21 mcg/actuation nasal spray,suspension ibuprofen 200 mg tablet 600 mg PO PRN tab 02/21/20 04/17/20 magnesium oxide 500 mg tablet 500 mg PO BID 02/21/20 04/10/21 atorvastatin 40 mg tablet 40 mg PO DAILY 04/17/20 04/10/21 oxcarbazepine 300 mg tablet 900 mg PO BID tab 04/17/20 04/10/21 pantoprazole 20 mg tablet,delayed 20 mg PO DAILY 04/17/20 04/10/21 release prazosin 2 mg capsule 4 mg PO QHS cap 04/17/20 04/10/21 tiagabine 2 mg tablet 2 mg PO .noon tab 04/17/20 04/10/21 amoxicillin 875 mg PO BID #20 tab 04/10/21 Previous Rx's Medication Instructions Recorded amoxicillin 875 mg PO BID #20 tab 04/10/21 Allergies Allergy/AdvReac Type Severity Reaction Status Date / Time diphenhydramine HCl Allergy Unknown Unverified 04/10/21 16:23 [From Benadryl] latex Allergy Unknown Unverified 04/10/21 16:23 phenytoin sodium Allergy Unknown Unverified 04/10/21 16:23 [From Dilantin] phenytoin sodium extended Allergy Unknown Unverified 04/10/21 16:23 [From Dilantin] General Stated Complaint: GenMedical YNES: 3 Review of Systems Constitutional Constitutional: Denies fever(s) ENT Ears, Nose, Mouth, and Throat: Reports mouth pain and Denies sore throat Cardiovascular Cardiovascular: Denies chest pain and Denies dyspnea Respiratory Respiratory: Denies cough and Denies dyspnea Gastrointestinal Gastrointestinal: Denies abdominal pain, Denies nausea and Denies vomiting Musculoskeletal Musculoskeletal: Denies back pain Integumentary/Breasts Skin/Breast: Denies rash PFSH All Active Problems Mouth pain (Acute) Influenza (Acute) Epilepsy (Acute) Cognitive developmental delay (Acute) Tremor (Acute) Medical History ADHD Asthma Behavior disorder GERD (gastroesophageal reflux disease) Hyperlipidemia Hypothyroidism Klinefelter syndrome karyotype 47, xxy PTSD (post-traumatic stress disorder) Scoliosis Surgical History 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 Previously lived in [place]. Currently under home care provided by [facility]. Guardian since 2019: Leanne Ly. Exam Const General: cooperative, healthy appearing, comfortable and no acute distress Orientation: alert and awake HENMT Head: normal to inspection, normocephalic and atraumatic Ears: external ears normal, TM's normal bilaterally and EAC's normal General nose exam: external nose normal Face images: 1. Minimal discomfort with warmth, erythema, swelling. Mouth: moist mucous membranes Teeth and gingiva: poor dentition Eyes General: appearance normal, both eyes and all related structures Conjunctivae: conjunctivae normal Neck Neck: normal visual inspection, full ROM, no lymphadenopathy, no meningeal signs, trachea midline, supple and nontender Resp Effort & Inspection: normal respiratory effort and able to speak in complete sentences Auscultation: clear to auscultation bilaterally Cardio Rate: regular rate Rhythm: regular rhythm GI Palpation: soft and nontender Back/Spine/Pelvis Back: No back tenderness Skin General skin exam: no rashes or lesions noted Neuro General: patient alert, patient awake, moves all extremities and no focal motor deficits Speech: speech normal Gait: normal gait Motor: muscle tone normal throughout Sensory Exam: no sensory deficits noted Extrem General: normal to inspection, full ROM and capillary refill normal Shoulder/upper arm images: 1. Mild soft tissue discomfort. Neuro, vascular, tendon intact. No erythema, swelling or ecchymosis. Psych Appearance: grossly normal Mental Status: mental status grossly normal Course Vital Signs Vital signs: Vital Signs Temperature 36.4 C L 04/10/21 16:19 Pulse 73 04/10/21 16:19 Respiratory Rate 18 04/10/21 16:19 Blood Pressure 130/53 L 04/10/21 16:19 Pulse Oximetry 94 04/10/21 16:19 Temperature 36.4 C L 04/10/21 16:19 Temperature Source Temporal Artery Scan 04/10/21 16:19 Pulse 73 04/10/21 16:19 Respiratory Rate 18 04/10/21 16:29 Respiratory Effort Non-Labored 04/10/21 16:29 Respiratory Depth Normal 04/10/21 16:29 Respiratory Pattern Normal 04/10/21 16:29 Blood Pressure 130/53 L 04/10/21 16:19 Blood Pressure Position Sitting 04/10/21 16:19 Pulse Oximetry 94 04/10/21 16:19 Oxygen Delivery Method Room Air 04/10/21 16:19 Oxygen Flow Rate 0 04/10/21 16:19 Lab/Test Results Lab/Test Results: Laboratory Tests Range/Units 04/10/21 17:50 Sodium (136-145) mmol/L 140 Potassium (3.5-5.1) mmol/L 4.0 Chloride (98-107) mmol/L 103 Carbon Dioxide (21.0-32.0) mmol/L 32.8 H Anion Gap (3-11) mmol/L 4.2 BUN (7-18) mg/dL 14 Creatinine (0.70-1.30) mg/dL 1.0 Estimated GFR/1.73 m2 (mL/min/1.73m2) >= 60.00 Glucose (74-106) mg/dL 89 Calcium (8.5-10.1) mg/dL 8.9 Magnesium (1.8-2.4) mg/dL 1.8 Total Bilirubin (0.2-1.0) mg/dL 0.3 AST (15-37) U/L 13 L ALT (16-63) U/L 23 Alkaline Phosphatase (46-116) U/L 45 L Troponin I (<or=60) ng/L < 50 Total Protein (6.4-8.2) g/dL 7.5 Albumin (3.4-5.0) g/dL 3.9
[2021-04-10] MEDS: Amoxicillin 875 MG TAB PO (18:48)
== END 2021-04-10 19:30 | disposition home or self-care (01) ==
PROVIDERS: Emergency Provider Physician Assistant; PCP Nurse Practitioner Family
DX: R68.84 Jaw pain (principal); M79.602 Pain in left arm
CPT/HCPCS: 80053; 93005; 99284; 71046; 83735; 84484; 85025; 93010; 99283

== ENCOUNTER 2021-07-18 02:24 | Outpatient (CLI) | payer MEDICAID, SELFPAY ==
[2021-07-18 09:44] LABS: Absolute Basophil Count 0.06 10^3/uL (0.0-0.2); Absolute Eosinophil Count 0.57 10^3/uL (0.0-0.7); Absolute Lymphocyte Count 3.16 10^3/uL (1.2-3.4); Absolute Neutrophil Count 1.48 10^3/uL (1.2-6.7); Basophils % 1.1; Eosinophils % 10.4; HCT 38.3 % (40.0-50.0); Lymphocytes % 57.8; MCH 30.5 pg (27.0-33.0); MCHC 31.3 % (32.0-36.0); MCV 97.2 fL (80-95); MPV 10.1 fL (8.0-11.0); Monocytes % 3.7; Platelet Count 188 10^3/uL (130-400); RBC 3.94 10^6/uL (4.36-5.78); RDW 13.4 % (11.8-14.1); RDW-SD 48.3 fL; WBC 5.47 10^3/uL (4.4-10.8)
[2021-07-18 11:18] LABS: Anion Gap 9.1 mmol/L (3-11); BUN 26 mg/dL (7-18); CO2 28.9 mmol/L (21.0-32.0); CREATININE 0.8 mg/dL (0.70-1.30); Calculated LDL 95 mg/dL (<100); Chloride 107 mmol/L (98-107); Cholesterol 166 mg/dL (<200); Glucose 104 mg/dL (74-106); HDL Cholesterol 53 mg/dL (40-60); Potassium 4.3 mmol/L (3.5-5.1); Sodium 145 mmol/L (136-145); Triglyceride 91 mg/dL (<150)
[2021-07-21 06:23] LABS: Vitamin D 25 Total 46.4 ng/mL (30-100)
[2021-07-21 10:08] LABS: Oxcarbazepine Metabolite, S 31 mcg/mL (10 - 35)
== END 2021-07-18 02:25 | disposition home or self-care (01) ==
LOC: LBO 02:24
PROVIDERS: PCP Nurse Practitioner Family; Visit Provider Nurse Practitioner Psychiatric/Mental Health
DX: F71 Moderate intellectual disabilities (principal); Z51.81 Encounter for therapeutic drug level monitoring; Z79.899 Other long term (current) drug therapy
CPT/HCPCS: 36415; 80048; 80061; 80183; 82306; 80164; 85025

== ENCOUNTER 2022-11-11 16:51 | Outpatient (REF) | payer MEDICAID, SELFPAY ==
[2022-11-11 21:26] LABS: HCT 36.6 % (40.0-50.0); HGB 11.7 g/dL (13.5-17.5); MCV 94 fL (80-95); MPV 10.8 fL (8.0-11.0); Platelet Count 244 10^3/uL (130-400); RDW 13.2 % (11.8-14.1); WBC 4.71 10^3/uL (4.4-10.8)
[2022-11-11 21:50] LABS: ALT 26 U/L (16-63); AST 15 U/L (15-37); Albumin 4.1 g/dL (3.4-5.0); Alkaline Phosphatase 51 U/L (46-116); Anion Gap 9.5 mmol/L (3-11); BUN 17 mg/dL (7-18); Bilirubin, Total 0.3 mg/dL (0.2-1.0); CO2 29.5 mmol/L (21.0-32.0); Chloride 103 mmol/L (98-107); Estimated GFR 102.55 (mL/min/1.73m2); Glucose 97 mg/dL (74-106); Potassium 4.4 mmol/L (3.5-5.1); Sodium 142 mmol/L (136-145); TSH (W/Ref FT4) 0.61 uIU/mL (0.36-3.74); Total Protein 7.4 g/dL (6.4-8.2)
[2022-11-11 21:51] LABS: VALPROIC ACID 69.3 ug/mL
== END 2022-11-11 16:52 | disposition home or self-care (01) ==
LOC: NCHCN 16:51
PROVIDERS: PCP Nurse Practitioner Family; Visit Provider Family Medicine
DX: E03.9 Hypothyroidism, unspecified (principal); E78.5 Hyperlipidemia, unspecified; Q98.4 Klinefelter syndrome, unspecified; Z79.899 Other long term (current) drug therapy; Z51.81 Encounter for therapeutic drug level monitoring; G40.909 Epilepsy, unspecified, not intractable, without status epilepticus
CPT/HCPCS: 80053; 85027; 80164; 84443

== ENCOUNTER 2023-09-16 23:46 | Emergency (ER) | payer MEDICAID, SELFPAY ==
[2023-09-16 23:49] VITALS: BP 169/74; PULSE 80; RESP 16; TEMP 36.9; O2SAT 96
--- NOTE | 2023-09-17 | DI.RAD_ITS ---
Exam(s) XR ELBOW LT COMPLETE EXAM: XR ELBOW LT COMPLETE CLINICAL HISTORY: L elbow pain, lateral TTP, after punching downward. TECHNIQUE: 2D digital imaging was performed. COMPARISON: No exams were available for comparison FINDINGS: 3 views No evidence of acute fracture or joint effusion. No swelling of the olecranon bursa. Radial head an d neck appear unremarkable as does the capitellum and epicondyles. Bone density normal there are no osseous lesions. IMPRESSION: No acute osseous findings in the elbow. DATA REPOSITORY: RADIATION DOSE DELIVERED:
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
[2023-09-17] MEDS: Ibuprofen 800 MG TAB PO (00:04)
[2023-09-17] MEDS: Acetaminophen 500 MG TAB 1000 MG PO (00:04)
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
== END 2023-09-17 01:57 | disposition home or self-care (01) ==
PROVIDERS: Emergency Provider Student in an Organized Health Care Education/Training Program; PCP Nurse Practitioner Family
DX: M25.522 Pain in left elbow (principal); W22.8XXA Striking against or struck by other objects, initial encounter
CPT/HCPCS: 99283; 73080

== ENCOUNTER 2023-10-04 00:31 | Emergency (ER) | payer MEDICAID, SELFPAY ==
--- NOTE | 2023-10-04 00:30 | RT.EKG_ITS ---
APPROVED REPORT Exam: Resting ECG Reason for Exam: chest pain Patient Location: E HR:53 bpm ECG Measurements Heart Rate 53 AXIS MI 163 P 32 QRSd 106 QRS -3 QT 433 T 8 QTc 406 Conclusion Sinus bradycardia...rate< [address] segment or T wave abnormalities to suggest occlusive OR
[2023-10-04 00:40] VITALS: BP 147/67; PULSE 52; RESP 16; O2SAT 97
--- NOTE | 2023-10-04 00:45 | DI.RAD_ITS ---
Exam(s) XR CHEST 2V PA LATERAL EXAM: XR CHEST 2V PA LATERAL CLINICAL HISTORY: chest pain. TECHNIQUE: 2D digital imaging was performed. COMPARISON: Prior chest x-ray 04/10/2021 FINDINGS: 2 views: Heart size is normal. The mediastinum is not widened. Lungs are clear. No infiltrates nor pleural effusions. IMPRESSION: No acute pulmonary findings. DATA REPOSITORY: RADIATION DOSE DELIVERED:
--- NOTE | 2023-10-04 00:48 | W.ED.GENAD ---
Discharge Plan Disposition Patient Disposition: Home Condition: Good Discharge Details Clinical Impression: Heart palpitations Primary Care Provider: Elke Tucker ED Provider: Deanne Lee Home Meds and New Rx's Prescriptions: Continued pantoprazole 20 mg tablet,delayed release (DR/EC) 20 mg PO DAILY atorvastatin 40 mg tablet 40 mg PO DAILY magnesium oxide 500 mg tablet 500 mg PO BID trazodone 100 MG tablet 300 mg PO .QHS trazodone 100 MG tablet 100 mg PO BID Rx Instructions: Takes @ 8am, 12Noon, 1600 divalproex [Depakote ER] 500 MG tablet extended release 24 hr 250 mg PO .QHS docusate sodium [Colace] 100 MG capsule 100 mg PO BID cholecalciferol (vitamin D3) [Vitamin D3] 2,000 UNIT capsule 2,000 unit PO DAILY Fish Oil 300 MG capsule 1,200 mg PO BID levothyroxine 25 MCG tablet 75 mcg PO DAILY melatonin 1 MG tablet 3 mg PO DAILY oxcarbazepine [Trileptal] 300 mg tablet 900 mg PO BID risperidone [Risperdal] 4 mg Tablet 4 mg PO DAILY risperidone [Risperdal] 2 mg Tablet 2 mg PO QHS prazosin 2 mg capsule 4 mg PO QHS calcium carbonate [Calcium 600] 600 mg calcium (1,500 mg) Tablet 600 mg PO BID vitamin B complex Tablet 1 tab PO DAILY Discharge Instructions Instructions: Palpitations ED Additional Instructions: Call your primary care doctor today to schedule an appointment within the next 48 hours to follow up on your visit here and to discuss adjusting medications for mood. Return to the emergency department for new or worsening symptoms including new/different/worse chest pain, feeling like you are going to pass out, difficulty breathing, or if you have any other concerns. Referrals: Elke Tucker [Primary Care Provider] - [facility] General Mode of arrival: ambulatory. Date/Time Provider Initiated Documentation: 10/04/23 00:36. Limitations to Documentation: no limitations. Information obtained by: patient and family. HPI Narrative: 33yo M with developmental delay, GERD, HLD, epiliepsy, asthma, hypothyroid, presenting with chest pain and palpitations. He reports feeling his heart thump hard , most often when he yawns. This has happened before but seems worse today. No shortness of breath, reflux/burning, lightheadedness, or syncope. Caregiver at bedside reports that he has been acting out more than usual over the past two weeks since stopping Depakote. Otherwise in his usual state of health with no fevers, chills, rash, nausea, vomiting, abdominal pain, LE edema, or other concerns. Related Data Home Medications Medication Instructions Recorded Confirmed cholecalciferol (vitamin D3) 50 2,000 unit PO DAILY 03/17/14 10/04/23 mcg (2,000 unit) capsule (Vitamin D3) divalproex 500 mg tablet,extended 250 mg PO .QHS 03/17/14 10/04/23 release 24 hr (Depakote ER) docusate sodium 100 mg capsule 100 mg PO BID 03/17/14 10/04/23 (Colace) levothyroxine 25 mcg tablet 75 mcg PO DAILY 03/17/14 10/04/23 melatonin 1 mg tablet 3 mg PO DAILY 03/17/14 10/04/23 omega-3 fatty acids 300 mg capsule 1,200 mg PO BID 03/17/14 10/04/23 (Fish Oil) trazodone 100 mg tablet 100 mg PO BID 03/17/14 10/04/23 trazodone 100 mg tablet 300 mg PO .QHS 03/17/14 10/04/23 risperidone 2 mg tablet (Risperdal) 2 mg PO QHS 12/21/18 10/04/23 risperidone 4 mg tablet (Risperdal) 4 mg PO DAILY 12/21/18 10/04/23 calcium carbonate (Calcium 600) 600 mg PO BID 04/04/19 10/04/23 vitamin B complex 1 tab PO DAILY 04/04/19 10/04/23 magnesium oxide 500 mg PO BID 02/21/20 10/04/23 atorvastatin 40 mg tablet 40 mg PO DAILY 04/17/20 10/04/23 oxcarbazepine 300 mg tablet 900 mg PO BID 04/17/20 10/04/23 (Trileptal) pantoprazole 20 mg tablet,delayed 20 mg PO DAILY 04/17/20 10/04/23 release prazosin 2 mg capsule 4 mg PO QHS 04/17/20 10/04/23 Allergies Allergy/AdvReac Type Severity Reaction Status Date / Time diphenhydramine HCl Allergy Unknown Unknown Verified 10/04/23 00:50 [From Benadryl] latex Allergy Unknown Unknown Verified 10/04/23 00:50 phenytoin sodium Allergy Unknown Unknown Verified 10/04/23 00:50 [From Dilantin] phenytoin sodium extended Allergy Unknown Unknown Verified 10/04/23 00:50 [From Dilantin] General Stated Complaint: GenMedical YNES: 3 Review of Systems Narrative: see HPI Exam Narrative Exam Narrative: General: Alert, well appearing, well nourished, in no acute distress. Head: Atraumatic Neck: Trachea midline, ?Neck supple. ENT: ?MMM.? Cardiac: ?RRR, no murmurs appreciated Resp: No respiratory distress. CTAB. Abd: ?Soft, non-distended, non- tender. Extremities: ?No deformities.? No peripheral edema. Neurologic: GCS 15. ? Moves all extremities freely against gravity Course Vital Signs Vital signs: Vital Signs Pulse 52 L 10/04/23 00:40 Respiratory Rate 16 10/04/23 00:40 Blood Pressure 147/67 H 10/04/23 00:40 Pulse Oximetry 97 10/04/23 00:40 Pulse 52 L 10/04/23 00:40 Respiratory Rate 16 10/04/23 00:40 Respiratory Effort Normal, Non-Labored 10/04/23 00:47 Blood Pressure 147/67 H 10/04/23 00:40 Blood Pressure Position Sitting 10/04/23 00:40 Pulse Oximetry 97 10/04/23 00:40 Oxygen Delivery Method Room Air 10/04/23 00:40 Oxygen Flow Rate 0 10/04/23 00:40 Medical Decision Making 33yo M with developmental delay, GERD, HLD, epilepsy, asthma, hypothyroid, presenting with chest pain and palpitations. He reports feeling his heart thump hard and hurt, most often when he yawns. Does not hurt currently. Otherwise well, though caregiver does report some increasing 'acting out' over the past two weeks since stopping Depakote. Vital signs reassuring on arrival. Benign physical exam. Low suspicion for acute cardiopulmonary process based on described symptoms and exam however given developmental delay and somewhat poor historian will evaluate palpitations further wt EKG/labs/CXR. No tachycardia, shortness of breath, or hypoxia to suggest pulmonary embolism; would not get dimer or CT imaging. -EKG on arrival sinus bradycardia in the 50's, appropriate intervals, no ST segment or T wave abnormalities to suggest occlusive IN. -CXR independently reviewed; no focal pneumonia or pneumothorax on my view, agree with radiology read below. -Labs reviewed as below, CBC reassuring with no leukocytosis, mild anemia with Hg at baseline, CMP with no actionable abnormalities, Mg normal, TSH normal, trop negative. HEART score 1; would not further pursue ACS. On reassessment he remains well appearing with reassuring vital signs. Requests to go home which is reasonable. Caregiver at bedside agrees with plan. Discharged home; discharge instructions and return precautions were reviewed with patient and caregiver who verbalized understanding. All questions were answered and they are in full agreement with the plan. 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 Previously lived in [place]. Currently under home care provided by [facility]. Guardian since 2019: Leanne Ly.
[2023-10-04 00:49] VITALS: RESP 16
[2023-10-04 01:12] LABS: Abs Immature Grans 0.01 10^3/uL (0.0-0.06); Absolute Basophil Count 0.04 10^3/uL (0.0-0.2); Absolute Eosinophil Count 0.41 10^3/uL (0.0-0.7); Absolute Lymphocyte Count 3.71 10^3/uL (1.2-3.4); Absolute Monocyte Count 0.37 10^3/uL (0.1-0.8); Absolute Neutrophil Count 2.83 10^3/uL (1.2-6.7); Basophils % 0.5 %; Eosinophils % 5.6 %; HCT 35.3 % (40.0-50.0); HGB 11.3 g/dL (13.5-17.5); Immature Grans % 0.1 %; Lymphocytes % 50.3 %; MCH 30.8 pg (27.0-33.0); MCV 96 fL (80-95); MPV 9.8 fL (8.0-11.0); Neutrophils % 38.5 %; Platelet Count 204 10^3/uL (130-400); RBC 3.67 10^6/uL (4.36-5.78); RDW 13.8 % (11.8-14.1); RDW-SD 49.1 fL; WBC 7.37 10^3/uL (4.4-10.8)
[2023-10-04 01:30] LABS: ALT 36 U/L (16-63); AST 28 U/L (15-37); Albumin 4.1 g/dL (3.4-5.0); Alkaline Phosphatase 66 U/L (46-116); Anion Gap 8.6 mmol/L (3-11); BUN 18 mg/dL (7-18); Bilirubin, Total 0.18 mg/dL (0.2-1.0); CO2 29.4 mmol/L (21.0-32.0); Calcium 8.7 mg/dL (8.5-10.1); Chloride 104 mmol/L (98-107); Estimated GFR 101.92 (mL/min/1.73m2); Glucose 113 mg/dL (74-106); Magnesium 1.9 mg/dL (1.8-2.4); Sodium 142 mmol/L (136-145); Total Protein 7.5 g/dL (6.4-8.2); Troponin I < 50 ng/L (< or =60)
[2023-10-04 01:38] LABS: TSH (W/Ref FT4) 1.05 uIU/mL (0.36-3.74)
[2023-10-04 02:06] VITALS: BP 140/70; PULSE 60; RESP 16; O2SAT 97
--- NOTE | 2023-10-04 02:43 | DI.VRAD_ITS ---
PROCEDURE INFORMATION: Exam: XR Chest Exam date and time: 10/04/2023 1:15 AM Age: 33 years old Clinical indication: Other: General; Patient HX: Chest pain TECHNIQUE: Imaging protocol: Radiologic exam of the chest. Views: 2 views. COMPARISON: CR XR CHEST 2V PA LATERAL 04/10/2021 6:21 PM FINDINGS: Lungs: Unremarkable. No consolidation. Pleural spaces: Unremarkable. No pleural effusion. No pneumothorax. Heart/Mediastinum: Unremarkable. No cardiomegaly. Bones/joints: Unremarkable. IMPRESSION: No acute findings. Dictated and Authenticated by: Po Guaman MD. Ordering:OPAL Alicea MD
== END 2023-10-04 02:06 | disposition home or self-care (01) ==
PROVIDERS: Emergency Provider Student in an Organized Health Care Education/Training Program; PCP Nurse Practitioner Family
DX: R00.2 Palpitations (principal)
CPT/HCPCS: 80053; 93005; 99282; 71046; 83735; 84443; 84484; 85025; 93010; 99283

== ENCOUNTER 2023-11-19 16:37 | Outpatient (REF) | payer MEDICAID, SELFPAY ==
[2023-11-22 12:07] LABS: Chlamydia Result Negative (Negative); GC Result Negative (Negative)
== END 2023-11-19 16:38 | disposition home or self-care (01) ==
LOC: LBN 16:37
PROVIDERS: PCP Nurse Practitioner Family; Visit Provider Specialist/Technologist Athletic Trainer
DX: Z20.2 Contact with and (suspected) exposure to infections with a predominantly sexual mode of transmission (principal)
CPT/HCPCS: 87491; 87591; 87086

== ENCOUNTER 2023-11-23 16:51 | Emergency (ER) | payer MEDICAID, SELFPAY ==
[2023-11-23 17:03] VITALS: BP 119/87; PULSE 70; RESP 16; TEMP 36.1; O2SAT 97
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
[2023-11-23 17:32] LABS: Abs Immature Grans 0.01 10^3/uL (0.0-0.06); Absolute Basophil Count 0.04 10^3/uL (0.0-0.2); Absolute Eosinophil Count 0.51 10^3/uL (0.0-0.7); Absolute Lymphocyte Count 2.83 10^3/uL (1.2-3.4); Absolute Monocyte Count 0.34 10^3/uL (0.1-0.8); Absolute Neutrophil Count 2.83 10^3/uL (1.2-6.7); Basophils % 0.6 %; Eosinophils % 7.8 %; HCT 40.3 % (40.0-50.0); HGB 12.6 g/dL (13.5-17.5); Immature Grans % 0.2 %; Lymphocytes % 43.1 %; MCH 29.9 pg (27.0-33.0); MCHC 31.3 % (32.0-36.0); MCV 96 fL (80-95); MPV 9.7 fL (8.0-11.0); Monocytes % 5.2 %; Neutrophils % 43.1 %; Platelet Count 257 10^3/uL (130-400); RBC 4.21 10^6/uL (4.36-5.78); RDW 13.5 % (11.8-14.1); RDW-SD 47.8 fL; WBC 6.56 10^3/uL (4.4-10.8)
[2023-11-23] MEDS: OLANZapine 5 MG TAB PO (17:52)
[2023-11-23 18:02] LABS: ALT 34 U/L (16-63); AST 23 U/L (15-37); Albumin 4.2 g/dL (3.4-5.0); Alkaline Phosphatase 56 U/L (46-116); Anion Gap 8.2 mmol/L (3-11); BUN 19 mg/dL (7-18); Bilirubin, Total 0.22 mg/dL (0.2-1.0); CO2 29.8 mmol/L (21.0-32.0); CREATININE 0.9 mg/dL (0.70-1.30); Calcium 9.6 mg/dL (8.5-10.1); Chloride 104 mmol/L (98-107); Estimated GFR 115.65 (mL/min/1.73m2); Glucose 96 mg/dL (74-106); Potassium 4.2 mmol/L (3.5-5.1); Sodium 142 mmol/L (136-145); TSH (W/Ref FT4) 1.15 uIU/mL (0.36-3.74); Total Protein 7.9 g/dL (6.4-8.2)
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
[2023-11-23 18:05] LABS: Bilirubin Negative (Negative); Blood Negative (Negative); Clarity Clear (Clear); Glucose Negative (Negative); Ketones Trace mg/dL (Negative); Leukocyte Esterase Negative (Negative); Nitrite Negative (Negative); Specific Gravity 1.015 (1.005-1.025); Urobilinogen 0.2 mg/dL (Up to 0.2); pH >= 9.0 (5-8)
[2023-11-23 18:09] LABS: ETHANOL BLOOD < 3.0 mg/dL (<10)
[2023-11-23 18:10] LABS: Salicylate < 2.8 mg/dL (<2.8)
[2023-11-23 18:13] LABS: Acetaminophen < 2 ug/mL (10-30)
[2023-11-23 18:14] LABS: Bacteria Negative HPF (Negative); C & S Indicated? No; Casts Negative LPF (Negative); Crystals Negative HPF (Negative); Epithelial Cells Negative HPF (Negative); Mucus Trace (Negative); RBC Negative HPF (0-2)
[2023-11-23 18:24] LABS: *AMPHETAMINES SCREEN URINE Negative (Negative); *BARBITURATES SCREEN URINE Negative (Negative); *BENZODIAZEPINES SCREEN URINE Negative (Negative); Cannabinoids THC Negative (Negative); Cocaine Screen,Urine Negative (Negative); METHADONE URINE SCREEN Negative (Negative); OPIATES URINE SCREEN Negative (Negative)
[2023-11-23 18:29] LABS: Tricyclic Antidepressants Negative (Negative)
[2023-11-24] VITALS (17 sets, daily range): BP systolic 111–128; BP diastolic 51–82; PULSE 62–101; RESP 11–22; O2SAT 91–97
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
--- NOTE | 2023-11-24 10:01 | NUR.NOTE ---
assumed care of PT. PT in restraints and in NAD Nursing Note:
[2023-11-24] MEDS: OLANZapine 10 MG VIAL IM (10:08)
[2023-11-24 10:53] LABS: VALPROIC ACID 49.1 ug/mL
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
--- NOTE | 2023-11-24 20:58 | NUR.NOTE ---
Access pt chart Champ Tullos called to see if the pt was still n our emergency room.
== END 2023-11-24 17:43 ==
PROVIDERS: Emergency Medicine; Emergency Provider Emergency Medicine; PCP Nurse Practitioner Family
DX: R45.851 Suicidal ideations (principal); R45.850 Homicidal ideations; G40.909 Epilepsy, unspecified, not intractable, without status epilepticus; R62.59 Other lack of expected normal physiological development in childhood; Z78.1 Physical restraint status
CPT/HCPCS: 00123; 80053; 80307; 96372; 99285; 80164; 80320; 80329; 81003; 81015; 84443; 85025; 99284; J2359

== ENCOUNTER 2024-08-07 12:56 | Emergency (ER) | payer MEDICAID, SELFPAY ==
--- NOTE | 2024-08-07 12:45 | RT.EKG_ITS ---
APPROVED REPORT Exam: Resting ECG Reason for Exam: chest pain Patient Location: E HR:77 bpm ECG Measurements Heart Rate 77 AXIS OR 151 P 0 QRSd 97 QRS -32 QT 359 T 145 QTc 408 Conclusion Sinus rhythm. 77 left axis no stemi
[2024-08-07 12:58] VITALS: BP 138/80; PULSE 88; RESP 14; TEMP 36.4; O2SAT 94
--- NOTE | 2024-08-07 14:20 | ED.GENADUL_ITS ---
Discharge Plan Disposition Patient Disposition: Eloped Condition: Stable Discharge Details Chief Complaint: Chest Pain Clinical Impression: Chest pain Primary Care Provider: Elke Tucker ED Provider: Reddy Winters Home Meds and New Rx's Prescriptions: No Action pantoprazole 20 mg tablet,delayed release (DR/EC) 20 mg PO DAILY atorvastatin 40 mg tablet 40 mg PO DAILY magnesium oxide 500 mg tablet 500 mg PO BID trazodone 100 MG tablet 200 mg PO .QHS divalproex [Depakote ER] 500 MG tablet extended release 24 hr 250 mg PO BID docusate sodium [Colace] 100 MG capsule 100 mg PO BID PRN cholecalciferol (vitamin D3) [Vitamin D3] 2,000 UNIT capsule 2,000 unit PO DAILY Fish Oil 300 MG capsule 1,200 mg PO BID levothyroxine 25 MCG tablet 75 mcg PO DAILY melatonin 1 MG tablet 3 mg PO DAILY oxcarbazepine [Trileptal] 300 mg tablet 300 mg PO BID risperidone [Risperdal] 4 mg Tablet 4 mg PO DAILY risperidone [Risperdal] 2 mg Tablet 2 mg PO QHS prazosin 2 mg capsule 5 mg PO QHS calcium carbonate [Calcium 600] 600 mg calcium (1,500 mg) Tablet 600 mg PO BID acetaminophen 325 mg tablet 325 mg PO QID PRN vitamin [id number] acid 1,000-400 mcg lozenge 1 deneen sublingual DAILY fluoxetine 10 mg capsule 10 mg PO DAILY gabapentin 300 mg capsule 300 mg PO BID guanfacine 1 mg tablet 1 mg PO QHS HPI General Mode of arrival: ambulatory . Date/Time Provider Initiated Documentation: 08/07/24 13:02 . Limitations to Documentation: no limitations . Information obtained by: patient . History of Present Illness 34 year old M presents to the emergency department with the chief complaint of anterior chest pain, described as moderate, Quality is described as aching, and is localized to the chest. Patient reports no radiation. Patient started experiencing this hour(s) (3) and it has been constant. No relieving factors improve symptom(s), Other factors that worsen symptoms (palpation of anterior chest wall) . Patient notes no other symptoms.. Related Data Home Medications ?Medication ?Instructions ?Recorded ?Confirmed cholecalciferol (vitamin D3) 50 2,000 unit PO DAILY 03/17/14 08/07/24 mcg (2,000 unit) capsule (Vitamin D3) divalproex 500 mg tablet,extended 250 mg PO BID 03/17/14 08/07/24 release 24 hr (Depakote ER) docusate sodium 100 mg capsule 100 mg PO BID PRN 03/17/14 08/07/24 (Colace) levothyroxine 25 mcg tablet 75 mcg PO DAILY 03/17/14 08/07/24 melatonin 1 mg tablet 3 mg PO DAILY 03/17/14 08/07/24 omega-3 fatty acids 300 mg capsule 1,200 mg PO BID 03/17/14 08/07/24 (Fish Oil) trazodone 100 mg tablet 200 mg PO .QHS 03/17/14 08/07/24 risperidone 2 mg tablet (Risperdal) 2 mg PO QHS 12/21/18 08/07/24 risperidone 4 mg tablet (Risperdal) 4 mg PO DAILY 12/21/18 08/07/24 calcium carbonate (Calcium 600) 600 mg PO BID 04/04/19 08/07/24 magnesium oxide 500 mg PO BID 02/21/20 08/07/24 atorvastatin 40 mg tablet 40 mg PO DAILY 04/17/20 08/07/24 oxcarbazepine 300 mg tablet 300 mg PO BID 04/17/20 08/07/24 (Trileptal) pantoprazole 20 mg tablet,delayed 20 mg PO DAILY 04/17/20 08/07/24 release prazosin 2 mg capsule 5 mg PO QHS 04/17/20 08/07/24 acetaminophen 325 mg tablet 325 mg PO QID PRN 08/07/24 08/07/24 fluoxetine 10 mg capsule 10 mg PO DAILY 08/07/24 08/07/24 gabapentin 300 mg capsule 300 mg PO BID 08/07/24 08/07/24 guanfacine 1 mg tablet 1 mg PO QHS 08/07/24 08/07/24 vitamin B12 1,000 mcg-folic acid 1 deneen sublingual DAILY 08/07/24 08/07/24 400 mcg sublingual lozenge Allergies Allergy/AdvReac Type Severity Reaction Status Date / Time diphenhydramine HCl (From Allergy Unknown Unknown Verified 08/07/24 13:00 Benadryl) latex Allergy Unknown Unknown Verified 08/07/24 13:00 phenytoin sodium (From Allergy Unknown Unknown Verified 08/07/24 13:00 Dilantin) phenytoin sodium extended Allergy Unknown Unknown Verified 08/07/24 13:00 (From Dilantin) General Stated Complaint: Chest Pain YNES: 2 Review of Systems All systems reviewed & are unremarkable except as noted in HPI and below Constitutional Constitutional: Denies chills, Denies fever(s) and Denies weakness Cardiovascular Cardiovascular: Reports chest pain and Denies dyspnea Respiratory Respiratory: Denies cough and Denies dyspnea Gastrointestinal Gastrointestinal: Denies abdominal pain, Denies nausea and Denies vomiting Neurologic Neurologic: Denies weakness Psychiatric Psychiatric: Denies depression Exam Const General: no acute distress Orientation: alert [facility] Head: normal to inspection Ears: external ears normal General nose exam: external nose normal Mouth: moist mucous membranes Eyes General: appearance normal, both eyes and all related structures Neck Neck: normal visual inspection Chest Chest: normal inspection of the chest and tenderness Resp Effort & Inspection: normal respiratory effort and able to speak in complete sentences Auscultation: clear to auscultation bilaterally Cardio Jugular venous pressure: no JVD Rate: regular rate Skin General skin exam: no rashes or lesions noted Neuro General: patient alert and patient oriented x3 Extrem General: normal to inspection Psych Mental Status: mental status grossly normal Course Vital Signs Vital signs: Vital Signs Temperature 36.4 C 08/07/24 12:58 Pulse 88 08/07/24 12:58 Respiratory Rate 14 08/07/24 12:58 Blood Pressure 138/80 08/07/24 12:58 Pulse Oximetry 94 08/07/24 12:58 Temperature 36.4 C 08/07/24 12:58 Temperature Source Oral 08/07/24 12:58 Pulse 88 08/07/24 12:58 Respiratory Rate 14 08/07/24 12:58 Blood Pressure 138/80 08/07/24 12:58 Blood Pressure Position Sitting 08/07/24 12:58 Pulse Oximetry 94 08/07/24 12:58 Oxygen Delivery Method Room Air 08/07/24 12:58 Oxygen Flow Rate 0 08/07/24 12:58 Medical Decision Making 34-year-old male with a history of epilepsy, cognitive delay, Klinefelter syndrome who had a surgery as a young child for a congenital heart issue comes in with chest pain. He says he was feeling well but then was climbing a fence and started having anterior chest pain. He denies falls or other traumatic injuries. He denies any fevers or cough, he denies any leg pain or calf tenderness. He is well-appearing speaking clearly. He has reproducible ant erior chest tenderness without visible or palpable deformity. Clear lung sounds, no leg swelling or calf tenderness. I suspect pleurisy or chest wall pain, will check a CBC and CMP and troponins. Will also obtain a chest x-ray. He has no tearing back pain to suggest dissection and has equal peripheral pulses. He does have 94% room air saturations on arrival, no evidence of DVT, will send D-dimer to screen for PE. Patient eloped with the workers before x-ray was done. His lab work shows no significant abnormality in his symptoms started for over 3 hours. His D-dimer is less than 500. My concern for potential pneumothorax is very low and do not feel he needs a call back. Differential Diagnosis Differential Diagnosis: Chest wall pain, pleurisy, NSTEMI, PE ECG Data Attestation: I personally reviewed and interpreted this ECG (s) as follows: Prior ECG tracings: available for review Interpretation: Sinus rhythm, rate of 77, no STEMI Quality:SDOH Health Related Social Needs: No Data to Display [facility] All Active Problems (Updated 08/07/24 @ 15:36 by Reddy Winters MD) Chest pain (Acute) Influenza (Acute) Epilepsy (Acute) Cognitive developmental delay (Acute) Tremor (Acute) Medical History ADHD Asthma Behavior disorder GERD (gastroesophageal reflux disease) Hyperlipidemia Hypothyroidism Klinefelter syndrome karyotype 47, xxy PTSD (post-traumatic stress disorder) Scoliosis Surgical History 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; 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 Family History Other Diabetes Heart disease Hypertension Social History Smoking/Tobacco Use Status: Never Smoking risk assessment performed?: Yes Alcohol Intake: never Drug use: Never Substance use type: does not use Household members: caregiver Housing: house Number of Children: 0 current occupation: Disabled Pets and animals: No What type of physical activity do you participate in: none Seatbelt use: always Do you feel safe at home: Yes Do you feel safe in your relationship?: Yes Additional Social history: Under state guardianship since age 6 when step- father and mother unable to care for him. Previously lived in [place]. Currently under home care provided by [facility]. Guardian since 2019: Leanne Ly.
[2024-08-07 14:37] LABS: Abs Immature Grans 0.01 10^3/uL (0.0-0.06); Absolute Basophil Count 0.05 10^3/uL (0.0-0.2); Absolute Eosinophil Count 0.73 10^3/uL (0.0-0.7); Absolute Lymphocyte Count 2.59 10^3/uL (1.2-3.4); Absolute Monocyte Count 0.36 10^3/uL (0.1-0.8); Absolute Neutrophil Count 3.19 10^3/uL (1.2-6.7); Basophils % 0.7 %; Eosinophils % 10.5 %; HGB 11.7 g/dL (13.5-17.5); Immature Grans % 0.1 %; Lymphocytes % 37.4 %; MCH 30.9 pg (27.0-33.0); MCHC 31.6 % (32.0-36.0); MCV 98 fL (80-95); MPV 9.6 fL (8.0-11.0); Monocytes % 5.2 %; Neutrophils % 46.1 %; Platelet Count 252 10^3/uL (130-400); RBC 3.79 10^6/uL (4.36-5.78); RDW 13.8 % (11.8-14.1); RDW-SD 49.5 fL; WBC 6.93 10^3/uL (4.4-10.8)
[2024-08-07 14:52] LABS: VALPROIC ACID 49.6 ug/mL
[2024-08-07 14:55] LABS: ALT 42 U/L (16-63); AST 27 U/L (15-37); Albumin 4.1 g/dL (3.4-5.0); Alkaline Phosphatase 70 U/L (46-116); Anion Gap 5.1 mmol/L (3-11); BUN 28 mg/dL (7-18); Bilirubin, Total 0.4 mg/dL (0.2-1.0); CO2 31.9 mmol/L (21.0-32.0); Calcium 9.5 mg/dL (8.5-10.1); Chloride 103 mmol/L (98-107); Estimated GFR 101.28 (mL/min/1.73m2); Glucose 109 mg/dL (74-106); Magnesium 1.9 mg/dL (1.8-2.4); Potassium 3.7 mmol/L (3.5-5.1); Sodium 140 mmol/L (136-145); Total Protein 7.8 g/dL (6.4-8.2); Troponin I 13 ng/L (<or=76)
[2024-08-07 15:07] LABS: D-Dimer 425 ng/mlFEU (<500)
[2024-08-07 15:08] VITALS: RESP 15
== END 2024-08-07 15:36 | disposition left against medical advice (07) ==
PROVIDERS: Emergency Provider Emergency Medicine; PCP Nurse Practitioner Family
DX: R07.9 Chest pain, unspecified (principal); E78.5 Hyperlipidemia, unspecified; Q98.0 Klinefelter syndrome karyotype 47, XXY; Z53.29 Procedure and treatment not carried out because of patient's decision for other reasons
CPT/HCPCS: 80053; 93005; 99283; 80164; 83735; 84484; 85025; 85379; 93010

== ENCOUNTER 2024-08-21 14:48 | Emergency (ER) | payer MEDICAID, SELFPAY ==
[2024-08-21 14:58] VITALS: BP 117/79; PULSE 93; RESP 18; TEMP 36.7; O2SAT 97
--- NOTE | 2024-08-21 15:26 | W.ED.GENAD ---
Discharge Plan Disposition Patient Disposition: Home Condition: Stable Discharge Details Chief Complaint: GI Bleed Clinical Impression: Gastroenteritis Primary Care Provider: Elke Tucker ED Provider: Tanya Pritchett Home Meds and New Rx's Prescriptions: No Action pantoprazole 20 mg tablet,delayed release (DR/EC) 20 mg PO DAILY atorvastatin 40 mg tablet 40 mg PO DAILY magnesium oxide 500 mg tablet 500 mg PO BID trazodone 100 MG tablet 200 mg PO .QHS divalproex [Depakote ER] 500 MG tablet extended release 24 hr 250 mg PO BID docusate sodium [Colace] 100 MG capsule 100 mg PO BID PRN cholecalciferol (vitamin D3) [Vitamin D3] 2,000 UNIT capsule 2,000 unit PO DAILY Fish Oil 300 MG capsule 1,200 mg PO BID levothyroxine 25 MCG tablet 75 mcg PO DAILY melatonin 1 MG tablet 3 mg PO DAILY oxcarbazepine [Trileptal] 300 mg tablet 300 mg PO BID risperidone [Risperdal] 4 mg Tablet 4 mg PO DAILY risperidone [Risperdal] 2 mg Tablet 2 mg PO QHS prazosin 2 mg capsule 5 mg PO QHS calcium carbonate [Calcium 600] 600 mg calcium (1,500 mg) Tablet 600 mg PO BID acetaminophen 325 mg tablet 325 mg PO QID PRN vitamin [id number] acid 1,000-400 mcg lozenge 1 deneen sublingual DAILY fluoxetine 10 mg capsule 10 mg PO DAILY gabapentin 300 mg capsule 300 mg PO BID guanfacine 1 mg tablet 1 mg PO QHS Discharge Instructions Instructions: Viral gastroenteritis in adults Additional Instructions: You were seen in the emergency department today for evaluation of diarrhea as well as red saliva. Your workup was most concerning for gastroenteritis. You had reassuring laboratory studies, and I did not see any blood in your stool today. It is possible that your saliva was read because of something that you ate, though certainly we also considered blood because of your history of GERD. You need to follow-up with your primary care provider at your scheduled appointment tomorrow, take all medications as prescribed. Some people use the brat diet (bananas, rice, apples, toast) which is bland and easily digestible foods when they have a diarrheal attack. This can help improve your symptoms. Please follow-up with your primary care provider in the next few days to discuss this visit and any symptoms that change, worsen, or persist. Thank you for allowing us to be part of your care. HPI General Mode of arrival: ambulatory. Date/Time Provider Initiated Documentation: 08/21/24 14:55. Limitations to Documentation: no limitations. Information obtained by: patient and old records reviewed. HPI Narrative: This is a 34-year-old male patient with a history of epilepsy, Klinefelter syndrome, congenital cardiac disease in childhood, developmental delay, who resides at an [facility] facility, who is presenting for evaluation of blood in his saliva and diarrhea. The patient reports that he has noted that there is redness in his saliva and he had an episode of vomiting that was tinged red yesterday. He reports that he is still feeling slightly sick to his stomach and with some mild abdominal discomfort. He has had several loose stools today, which were described as green by the patient and normal colored by the staff member who observed them. The patient has a history of GERD, has been taking his pantoprazole, has had no recent changes in his medications. The patient reports that he did drink a small amount of red Toñito-Aid today. He has been eating the weeds of the side of the building for some time, he reports that he thought that they were weed, like marijuana, and has been continuing to eat them despite counseling by the staff members not to do so. He has not had any vomiting today, nobody else in the care facility has been sick with similar diarrheal symptoms. No recent antibiotic use. Related Data Home Medications ?Medication ?Instructions ?Recorded ?Confirmed cholecalciferol (vitamin D3) 50 2,000 unit PO DAILY 03/17/14 08/21/24 mcg (2,000 unit) capsule (Vitamin D3) divalproex 500 mg tablet,extended 250 mg PO BID 03/17/14 08/21/24 release 24 hr (Depakote ER) docusate sodium 100 mg capsule 100 mg PO BID PRN 03/17/14 08/21/24 (Colace) levothyroxine 25 mcg tablet 75 mcg PO DAILY 03/17/14 08/21/24 melatonin 1 mg tablet 3 mg PO DAILY 03/17/14 08/21/24 omega-3 fatty acids 300 mg capsule 1,200 mg PO BID 03/17/14 08/21/24 (Fish Oil) trazodone 100 mg tablet 200 mg PO .QHS 03/17/14 08/21/24 risperidone 2 mg tablet (Risperdal) 2 mg PO QHS 12/21/18 08/21/24 risperidone 4 mg tablet (Risperdal) 4 mg PO DAILY 12/21/18 08/21/24 calcium carbonate (Calcium 600) 600 mg PO BID 04/04/19 08/21/24 magnesium oxide 500 mg PO BID 02/21/20 08/21/24 atorvastatin 40 mg tablet 40 mg PO DAILY 04/17/20 08/21/24 oxcarbazepine 300 mg tablet 300 mg PO BID 04/17/20 08/21/24 (Trileptal) pantoprazole 20 mg tablet,delayed 20 mg PO DAILY 04/17/20 08/21/24 release prazosin 2 mg capsule 5 mg PO QHS 04/17/20 08/21/24 acetaminophen 325 mg tablet 325 mg PO QID PRN 08/07/24 08/21/24 fluoxetine 10 mg capsule 10 mg PO DAILY 08/07/24 08/21/24 gabapentin 300 mg capsule 300 mg PO BID 08/07/24 08/21/24 guanfacine 1 mg tablet 1 mg PO QHS 08/07/24 08/21/24 vitamin B12 1,000 mcg-folic acid 1 deneen sublingual DAILY 08/07/24 08/21/24 400 mcg sublingual lozenge Allergies Allergy/AdvReac Type Severity Reaction Status Date / Time diphenhydramine HCl (From Allergy Unknown Unknown Verified 08/21/24 15:00 Benadryl) latex Allergy Unknown Unknown Verified 08/21/24 15:00 phenytoin sodium (From Allergy Unknown Unknown Verified 08/21/24 15:00 Dilantin) phenytoin sodium extended Allergy Unknown Unknown Verified 08/21/24 15:00 (From Dilantin) General Stated Complaint: GI Bleed YNES: 3 Exam Narrative Exam Narrative: Gen: Awake and alert, in no apparent distress HEENT: Non-icteric sclera. The patient does have red coloring staining his tongue, no evidence of bleeding to the gums, oral cavity, or naris. Neck: Supple Lungs: No apparent respiratory distress, normal respiratory effort. CV: Appears well perfused, strong distal pulses Abdomen: Non-distended, soft, generalized discomfort reported to palpation without rigidity, rebound, or guarding. The patient is unable to localize the specific area of pain. Rectl: Rectal examination performed under the supervision of watch commander Sumi, which reveals a normal external anus without hemorrhoids, light brown stool noted on the glove without melena or hematochezia. No palpable internal hemorrhoids or masses MSK: Moves 4 extremities without apparent limitation in ROM Skin: Visualized skin without rashes, cyanosis. Neuro: Normal Gait, no obvious focal deficits or facial asymmetry. Speaks in full, clear sentences. Psych: Appropriate for situation. Course Vital Signs Vital signs: Vital Signs Temperature 36.7 C 08/21/24 14:58 Pulse 93 H 08/21/24 14:58 Respiratory Rate 18 08/21/24 14:58 Blood Pressure 117/79 08/21/24 14:58 Pulse Oximetry 97 08/21/24 14:58 Temperature 36.7 C 08/21/24 14:58 Pulse 93 H 08/21/24 14:58 Respiratory Rate 18 08/21/24 14:58 Blood Pressure 117/79 08/21/24 14:58 Pulse Oximetry 97 08/21/24 14:58 Lab/Test Results Lab/Test Results: Laboratory Tests Range/Units 08/21/24 15:04 ABO/Rh Cancelled Antibody Screen Cancelled Medical Decision Making This is a 34-year-old male patient presenting for evaluation of nausea, vomiting and diarrhea as well as red saliva. My differential includes but is not limited to gastroenteritis, gastritis, peptic ulcer disease, certainly consider GI bleed given the patient's history of GERD, though the patient is reassuringly without evidence of melena or jose f blood on rectal examination. I considered discoloration due to food dyes given the reported consumption of Toñito-Aid. Considered metabolic and electrolyte derangements, dehydration, anemia, kidney or liver injury. Is unclear to me what plants this patient has been ingesting, and I certainly considered contribution of this plant to his GI symptoms. Unfortunately, identification is not immediately available. The patient has a benign abdominal examination at this time, and I have a lower concern for bowel obstruction, diverticulitis, appendicitis, hepatitis, cholecystitis, or pancreatitis. We will obtain laboratory studies to include CBC, CMP, magnesium, troponin, and lipase. I will provide the patient with Zofran for management of his nausea. Given the lack of evidence for active GI bleed and his reassuring exam and vital signs, I do not see an indication to proceed with advanced imaging at this time. - I reviewed the patient's labs, which shows a mild leukopenia, stable anemia and thrombocytopenia. INR 1.0, chemistry panel without electrolyte derangement, kidney dysfunction or liver abnormalities. Lipase and troponin are low. The patient reports that he feels much improved after Zofran, and was able to tolerate oral intake. He has had no further episodes of vomiting, and I note no blood coming from the oral cavity. He did provide a urine sample as he reported some pain with urination, which shows no infection or hematuria. The patient does have a scheduled primary care appointment tomorrow, and I am reassured by this close follow-up. I do not see an indication to make any changes to his medications at this time as he is already taking a PPI for gastric protection. I considered gastroenteritis in this patient with diarrhea, and GI bleed is certainly on the differential although not definitive based on my exam. At this time, the patient has had a full medical evaluation and is safe for discharge to home. They are hemodynamically stable, ambulatory, and tolerating PO. They are understanding of the follow-up plan and return precautions. They left our facility without incident. 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 Family History Other Diabetes Heart disease Hypertension Social History Smoking/Tobacco Use Status: Never Smoking risk assessment performed?: Yes Alcohol Intake: never Drug use: Never Substance use type: does not use Household members: caregiver Housing: house Number of Children: 0 current occupation: Disabled Pets and animals: No What type of physical activity do you participate in: none Seatbelt use: always Do you feel safe at home: Yes Do you feel safe in your relationship?: Yes Additional Social history: Under state guardianship since age 6 when step-father and mother unable to care for him. Previously lived in [place]. Currently under home care provided by [facility]. Guardian since 2019: Leanne Ly.
[2024-08-21] MEDS: Ondansetron 4 MG/2 ML VIAL IVP (15:38)
[2024-08-21 15:53] LABS: Absolute Basophil Count 0.02 10^3/uL (0.0-0.2); Absolute Lymphocyte Count 1.09 10^3/uL (1.2-3.4); Absolute Monocyte Count 0.21 10^3/uL (0.1-0.8); Absolute Neutrophil Count 1.54 10^3/uL (1.2-6.7); Basophils % 0.7 %; Eosinophils % 3.4 %; HCT 37.5 % (40.0-50.0); HGB 12.1 g/dL (13.5-17.5); Lymphocytes % 36.8 %; MCH 30.3 pg (27.0-33.0); MCHC 32.3 % (32.0-36.0); MCV 94 fL (80-95); MPV 9.9 fL (8.0-11.0); Monocytes % 7.1 %; Platelet Count 150 10^3/uL (130-400); RDW 12.8 % (11.8-14.1); RDW-SD 44.2 fL; WBC 2.96 10^3/uL (4.4-10.8)
[2024-08-21 16:04] LABS: Prothrombin Time 9.9 sec (9.1-11.1)
[2024-08-21 16:11] LABS: ALT 44 U/L (16-63); AST 37 U/L (15-37); Albumin 3.7 g/dL (3.4-5.0); Alkaline Phosphatase 53 U/L (46-116); Anion Gap 9.9 mmol/L (3-11); BUN 21 mg/dL (7-18); Bilirubin, Total 0.5 mg/dL (0.2-1.0); CO2 29.1 mmol/L (21.0-32.0); Chloride 101 mmol/L (98-107); Estimated GFR 101.28 (mL/min/1.73m2); Glucose 101 mg/dL (74-106); Lipase 38 U/L (<78); Magnesium 1.9 mg/dL (1.8-2.4); Potassium 3.7 mmol/L (3.5-5.1); Sodium 140 mmol/L (136-145); Total Protein 7.6 g/dL (6.4-8.2); Troponin I 6 ng/L (<or=76)
[2024-08-21 16:41] LABS: Bilirubin Small (Negative); Blood Negative (Negative); Clarity Clear (Clear); Glucose Negative (Negative); Ketones Trace mg/dL (Negative); Leukocyte Esterase Negative (Negative); Nitrite Negative (Negative); Specific Gravity 1.025 (1.005-1.025); Urobilinogen 0.2 mg/dL (Up to 0.2)
[2024-08-21 16:54] LABS: Bacteria Negative HPF (Negative); C & S Indicated? No; Crystals Negative HPF (Negative); Epithelial Cells Few HPF (Negative); Mucus Heavy (Negative); RBC 0-2 HPF (0-2); WBC 0-2 HPF (0-5)
[2024-08-21 17:00] VITALS: BP 122/55; PULSE 64; RESP 15; O2SAT 98
== END 2024-08-21 17:01 | disposition home or self-care (01) ==
PROVIDERS: Emergency Provider Emergency Medicine; PCP Nurse Practitioner Family
DX: K52.9 Noninfective gastroenteritis and colitis, unspecified (principal); R11.2 Nausea with vomiting, unspecified; R19.7 Diarrhea, unspecified
CPT/HCPCS: 99283; 99284; 96374; 36415; 80053; 83690; 86850; 86900; 86901; 81003; 81015; 83735; 84484; 85025; 85610; J2405

== ENCOUNTER 2024-09-12 14:44 | Outpatient (REF) | payer MEDICAID, SELFPAY ==
[2024-09-24 17:46] LABS: Testosterone, Free 3.86 ng/dL (4.85-19.0); Testosterone, Total 180 ng/dL (240-950)
== END 2024-09-12 14:45 | disposition home or self-care (01) ==
LOC: NCHCN 14:44
PROVIDERS: PCP Nurse Practitioner Family; Visit Provider Family Medicine
DX: Q98.4 Klinefelter syndrome, unspecified (principal)
CPT/HCPCS: 82533; 84402; 84403

== ENCOUNTER 2024-10-27 12:37 | Emergency (ER) | payer MEDICAID, SELFPAY ==
[2024-10-27 12:38] VITALS: BP 127/80; PULSE 66; RESP 16; TEMP 36.6; O2SAT 92
--- NOTE | 2024-10-27 12:51 | W.ED.GENAD ---
Discharge Plan Disposition Patient Disposition: Home Condition: Stable Discharge Details Clinical Impression: Blunt head trauma Primary Care Provider: Elke Tucker ED Provider: Reddy Winters Home Meds and New Rx's Prescriptions: Continued pantoprazole 20 mg tablet,delayed release (DR/EC) 20 mg PO DAILY atorvastatin 40 mg tablet 40 mg PO DAILY magnesium oxide 500 mg tablet 500 mg PO BID trazodone 100 MG tablet 200 mg PO .QHS divalproex [Depakote ER] 500 MG tablet extended release 24 hr 250 mg PO BID docusate sodium [Colace] 100 MG capsule 100 mg PO BID PRN cholecalciferol (vitamin D3) [Vitamin D3] 2,000 UNIT capsule 2,000 unit PO DAILY Fish Oil 300 MG capsule 1,200 mg PO BID levothyroxine 25 MCG tablet 75 mcg PO DAILY melatonin 1 MG tablet 3 mg PO DAILY oxcarbazepine [Trileptal] 300 mg tablet 300 mg PO BID risperidone [Risperdal] 4 mg Tablet 4 mg PO DAILY prazosin 2 mg capsule 5 mg PO QHS calcium carbonate [Calcium 600] 600 mg calcium (1,500 mg) Tablet 600 mg PO BID acetaminophen 325 mg tablet 325 mg PO QID PRN vitamin [id number] acid 1,000-400 mcg lozenge 1 deneen sublingual DAILY fluoxetine 10 mg capsule 20 mg PO DAILY gabapentin 300 mg capsule 300 mg PO BID guanfacine 1 mg tablet 1 mg PO QHS Discharge Instructions Additional Instructions: Your CAT scan did not show any concerning findings at this time. Follow-up with your primary care provider and mental health providers. If you feel more ill or have new symptoms such as persistent vomiting return to the emergency department for reevaluation HPI General Mode of arrival: ambulatory. Date/Time Provider Initiated Documentation: 10/27/24 12:38. Limitations to Documentation: no limitations. Information obtained by: patient and family (care takers). History of Present Illness 34 year old M presents to the emergency department with the chief complaint of banging head on wall, described as mild, and is localized to the head. Patient reports no radiation. Patient started experiencing this week(s) (2) and it has been constant. No relieving factors improve symptom(s), No exacerbating factors reported . Patient notes denies nausea/vomiting and shortness of breath. Patient did receive the following treatments prior to arrival, none Related Data Home Medications ?Medication ?Instructions ?Recorded ?Confirmed cholecalciferol (vitamin D3) 50 2,000 unit PO DAILY 03/17/14 10/27/24 mcg (2,000 unit) capsule (Vitamin D3) divalproex 500 mg tablet,extended 250 mg PO BID 03/17/14 10/27/24 release 24 hr (Depakote ER) docusate sodium 100 mg capsule 100 mg PO BID PRN 03/17/14 10/27/24 (Colace) levothyroxine 25 mcg tablet 75 mcg PO DAILY 03/17/14 10/27/24 melatonin 1 mg tablet 3 mg PO DAILY 03/17/14 10/27/24 omega-3 fatty acids 300 mg capsule 1,200 mg PO BID 03/17/14 10/27/24 (Fish Oil) trazodone 100 mg tablet 200 mg PO .QHS 03/17/14 10/27/24 risperidone 4 mg tablet (Risperdal) 4 mg PO DAILY 12/21/18 10/27/24 calcium carbonate (Calcium 600) 600 mg PO BID 04/04/19 10/27/24 magnesium oxide 500 mg PO BID 02/21/20 10/27/24 atorvastatin 40 mg tablet 40 mg PO DAILY 04/17/20 10/27/24 oxcarbazepine 300 mg tablet 300 mg PO BID 04/17/20 10/27/24 (Trileptal) pantoprazole 20 mg tablet,delayed 20 mg PO DAILY 04/17/20 10/27/24 release prazosin 2 mg capsule 5 mg PO QHS 04/17/20 10/27/24 acetaminophen 325 mg tablet 325 mg PO QID PRN 08/07/24 10/27/24 fluoxetine 10 mg capsule 20 mg PO DAILY 08/07/24 10/27/24 gabapentin 300 mg capsule 300 mg PO BID 08/07/24 10/27/24 guanfacine 1 mg tablet 1 mg PO QHS 08/07/24 10/27/24 vitamin B12 1,000 mcg-folic acid 1 deneen sublingual DAILY 08/07/24 10/27/24 400 mcg sublingual lozenge Allergies Allergy/AdvReac Type Severity Reaction Status Date / Time diphenhydramine HCl (From Allergy Unknown Unknown Verified 10/27/24 12:45 Benadryl) latex Allergy Unknown Unknown Verified 10/27/24 12:45 phenytoin sodium (From Allergy Unknown Unknown Verified 10/27/24 12:45 Dilantin) phenytoin sodium extended Allergy Unknown Unknown Verified 10/27/24 12:45 (From Dilantin) General Stated Complaint: PsychEval YNES: 2 Review of Systems All systems reviewed & are unremarkable except as noted in HPI and below Constitutional Constitutional: Denies chills and Denies fever(s) Eyes Eyes: Denies loss of vision Gastrointestinal Gastrointestinal: Denies abdominal pain, Denies nausea and Denies vomiting Neurologic Neurologic: Denies loss of vision Exam Const General: no acute distress Orientation: alert [facility] Head: normal to inspection Ears: external ears normal General nose exam: external nose normal Mouth: moist mucous membranes Eyes General: appearance normal, both eyes and all related structures Neck Neck: normal visual inspection Resp Effort & Inspection: normal respiratory effort and able to speak in complete sentences Cardio Rate: regular rate Skin General skin exam: no rashes or lesions noted Neuro General: patient alert and patient oriented x3 Extrem General: normal to inspection Psych Mental Status: mental status grossly normal Course Vital Signs Vital signs: Vital Signs Temperature 36.6 C 10/27/24 12:38 Pulse 66 10/27/24 12:38 Respiratory Rate 16 10/27/24 12:38 Blood Pressure 127/80 10/27/24 12:38 Pulse Oximetry 92 10/27/24 12:38 Temperature 36.6 C 10/27/24 12:38 Temperature Source Oral 10/27/24 12:38 Pulse 66 10/27/24 12:38 Respiratory Rate 16 10/27/24 12:38 Blood Pressure 127/80 10/27/24 12:38 Blood Pressure Position Sitting 10/27/24 12:38 Pulse Oximetry 92 10/27/24 12:38 Oxygen Delivery Method Room Air 10/27/24 12:38 Oxygen Flow Rate 0 10/27/24 12:38 Medical Decision Making 34-year-old male with a history of cognitive developmental delay, epilepsy, comes in with caretakers with concerns that he has been in his [place] recently. Apparently he lasted his head on the back of his head last night. No loss of consciousness, no nausea or vomiting. Patient denies any severe headaches. They were having a meeting with the psychiatrist who was concerned with the head being in felt he should have a CT. He has no midline C-spine tenderness, no chest or abdomen tenderness. He is well-appearing on exam. Low likelihood for traumatic injury but will proceed with CT head to evaluate for this. Patient denies any SI or HI Patient stable and without complaints other than he states he is hungry. CT negative. He is stable for discharge and will follow-up with his PCP and mental health providers, return precautions given. Still denies any HI or SI has been calm and cooperative here so I do not feel an acute or emergent crisis evaluation is indicated Differential Diagnosis Differential Diagnosis: Concussion, TBI Medical Records Medical records reviewed: Yes I reviewed the patient's medical records. 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 Family History Other Diabetes Heart disease Hypertension Social History Smoking/Tobacco Use Status: Never Smoking risk assessment performed?: Yes Alcohol Intake: never Drug use: Never Substance use type: does not use Household members: caregiver Housing: house Number of Children: 0 current occupation: Disabled Pets and animals: No What type of physical activity do you participate in: none Seatbelt use: always Do you feel safe at home: Yes Do you feel safe in your relationship?: Yes Additional Social history: Under state guardianship since age 6 when step-father and mother unable to care for him. Previously lived in [place]. Currently under home care provided by [facility]. Guardian since 2019: Leanne Ly.
--- NOTE | 2024-10-27 14:00 | DI.CT_ITS ---
Exam(s) CT HEAD WO EXAM: CT HEAD WO CLINICAL HISTORY: hit head, pain. TECHNIQUE: Imaging Protocol: Axial computed tomography images with coronal and sagittal reformatted images were created and reviewed COMPARISON: CT CT HEAD WO from 05/02/2019 FINDINGS: Ventricles and Extra axial spaces: Normal in size and morphology for the patient's age. Hemorrhage: None. Cerebral parenchyma: No evidence of acute infarct or mass. Midline shift: None. Brainstem/Cerebellum: Normal. Bones: No skull or facial fractures. Visualized Paranasal sinuses:Clear. Mastoids: Clear. Soft Tissues: Unremarkable. ORBITS: Unremarkable. PITUITARY: Not enlarged. IMPRESSION: No acute intracranial process. RADIATION DOSE DELIVERED: 814.97mGy.cm Total DLP DATA REPOSITORY: All CT scans at this facility are submitted to the National Radiology Data Registry (NRDR) Dose Index Registry (DIR) with the [employer] ([employer]). RADIATION OPTIMIZATION: All CT scans at this facility use at least one of these dose optimization techniques: automated exposure control; mA and/or kV adjustment per patient size (includes targeted exams where dose is matched to clinical indication); or iterative reconstruction.
[2024-10-27 15:04] VITALS: BP 124/66; PULSE 54; RESP 18
== END 2024-10-27 14:36 | disposition home or self-care (01) ==
PROVIDERS: Emergency Provider Emergency Medicine; PCP Nurse Practitioner Family
DX: S09.90XA Unspecified injury of head, initial encounter (principal); X58.XXXA Exposure to other specified factors, initial encounter
CPT/HCPCS: 99284; 99283; 70450

== ENCOUNTER 2024-11-28 15:17 | Outpatient (REF) | payer MEDICAID, SELFPAY ==
[2024-11-28 16:40] LABS: TSH 0.75 uIU/mL (0.36-3.74)
[2024-12-09 01:26] LABS: Testosterone, Free 52.3 pg/mL (35.0-155.0)
== END 2024-11-28 15:18 | disposition home or self-care (01) ==
LOC: NCHCN 15:17
PROVIDERS: PCP Nurse Practitioner Family; Visit Provider Family Medicine
DX: R79.89 Other specified abnormal findings of blood chemistry (principal); E03.9 Hypothyroidism, unspecified
CPT/HCPCS: 84402; 84403; 84443

== ENCOUNTER 2025-01-08 03:45 | Outpatient (CLI) | payer MEDICAID, SELFPAY ==
[2025-01-08 13:42] LABS: Abs Immature Grans 0.01 10^3/uL (0.0-0.06); HCT 40.2 % (40.0-50.0); HGB 12.4 g/dL (13.5-17.5); Immature Grans % 0.2 %; MCH 28.8 pg (27.0-33.0); MCHC 30.8 % (32.0-36.0); MCV 93 fL (80-95); MPV 9.8 fL (8.0-11.0); Platelet Count 270 10^3/uL (130-400); RBC 4.31 10^6/uL (4.36-5.78); RDW 13.7 % (11.8-14.1); RDW-SD 47.2 fL; WBC 5.83 10^3/uL (4.4-10.8)
[2025-01-08 14:02] LABS: Hemoglobin A1C 5.5 % (<5.7)
[2025-01-08 14:54] LABS: ALT 50 U/L (16-63); AST 20 U/L (15-37); Albumin 4.0 g/dL (3.4-5.0); Alkaline Phosphatase 46 U/L (46-116); Anion Gap 6.7 mmol/L (3-11); BUN 21 mg/dL (7-18); Bilirubin, Total 0.2 mg/dL (0.2-1.0); CO2 33.3 mmol/L (21.0-32.0); Calcium 9.1 mg/dL (8.5-10.1); Calculated LDL 104 mg/dL (<100); Chloride 102 mmol/L (98-107); Cholesterol 180 mg/dL (<200); Estimated GFR 90.34 (mL/min/1.73m2); Glucose 77 mg/dL (74-106); HDL Cholesterol 40 mg/dL (>or=40); Potassium 4.2 mmol/L (3.5-5.1); Sodium 142 mmol/L (136-145); Total Protein 7.8 g/dL (6.4-8.2); Triglyceride 182 mg/dL (<150); Vitamin B12 1369 pg/mL (193-986)
[2025-01-18 19:29] LABS: Testosterone, Free 116.4 pg/mL (35.0-155.0)
== END 2025-01-08 03:46 | disposition home or self-care (01) ==
LOC: LBO 03:45
PROVIDERS: Psychiatry & Neurology Psychiatry; PCP Nurse Practitioner Family; Visit Provider Family Medicine
DX: R79.89 Other specified abnormal findings of blood chemistry (principal)
CPT/HCPCS: 36415; 80053; 80061; 84402; 84403; 80156; 80164; 82607; 83036; 85025

== ENCOUNTER → 2025-02-26 02:13 | Outpatient (CLI) | payer MEDICAID, SELFPAY ==
--- NOTE | 2025-02-26 10:30 | DI.RAD_ITS ---
Exam(s) XR TIB/FIB RT EXAM: XR TIB/FIB RT CLINICAL HISTORY: PAIN RT LOWER LEG,M79.661. TECHNIQUE: 2D digital imaging was performed of the right tibia and fibula. Two images were obtained. AP and lateral views were obtained. COMPARISON: No exams were available for comparison FINDINGS: BONES: No acute fracture is present. No bony destructive lesion is seen. Visualized portion of knee and ankle joints are unremarkable. SOFT TISSUE: Normal. IMPRESSION: Unremarkable radiographs of the right tibia and fibula. DATA REPOSITORY: RADIATION DOSE DELIVERED:
== END ==
PROVIDERS: PCP Nurse Practitioner Family; Visit Provider Family Medicine
DX: M79.661 Pain in right lower leg (principal)
CPT/HCPCS: 73590